=== PATIENT | female | born 1955 | race Caucasian/White ===

== ENCOUNTER 2018-05-27 06:48 | Day surgery (SDC) | payer BC ==
--- NOTE | 2018-05-20 17:25 | HP ---
CC: Dr. Tia Hutchinson * ADMISSION HISTORY AND PHYSICAL: DATE OF ADMISSION: 05/27/18 ATTENDING SURGEON: Dr. Martina Bautista.* (DICTATED BY KEVIN MITTAL) CHIEF COMPLAINT: Atypia, left breast. HISTORY OF PRESENT ILLNESS: This is a 62-year-old female who underwent routine screening mammography on 04/20/18. This was preceded by breast exam by her primary care provider, Dr. Hutchinson. Neither the patient herself nor Dr. Hutchinson had felt anything of concern in either breast. The mammogram from that day showed some architectural distortion in the left breast upper inner quadrant. An ultrasound on the same date did not show any abnormalities. A subsequent stereotactic biopsy on 05/04/18, showed atypical glandular parenchyma with differential including invasive ductal carcinoma, tough recommendation was for further excision. The patient was seen in the office by Dr. Bautista on . Exam at that time showed symmetric breasts with extensive ecchymosis of the left breast in the superior aspect. There was also a scar in the outer right breast with associated skin dimpling (from prior I and D for a breast abscess about 10 years ago). There were no nipple changes. There were no discreet masses of the right breast. In the left breast, there was a 2.5 x 2 cm subcutaneous smooth, regular mass consistent with hematoma in the superior aspect. There were no other discrete masses palpable. Dr. Bautista has discussed with the patient, the indications for surgery, the risks, benefits, and alternatives and she would like to proceed as scheduled with wide excision of left breast atypia (following needle localization). A biopsy clip was placed at that time. PAST MEDICAL HISTORY: Ankylosing spondylitis, arthritis, hypertension, anxiety and depression, peripheral neuropathy. The patient has had a past history of asthma generally during the time when she smoked and with no problems in the recent years or need for bronchodilator therapy. PAST SURGICAL HISTORY: Previous surgeries include lumbar laminectomy, I and D of right breast abscess, vaginal hysterectomy for dysfunctional uterine bleeding , excision of the hemangioma of the back and appendectomy remotely. No reported surgical or anesthesia complications. CURRENT MEDICATIONS: 1. Celebrex 200 mg b.i.d. 2. Amlodipine 5 mg daily. 3. Fentanyl patch 50 mcg changed every other day. 4. Singulair 10 mg daily. 5. Hydrocodone-acetaminophen 10-325 one to two tablets p.r.n. for pain ( typically uses 6 tablets per day). 6. Gabapentin 300 mg 1 to 2 tablets q.h.s. p.r.n. 7. Alpha lipoic acid 60 mg once daily. 8. Viibryd 20 mg once daily. 9. Clonazepam 1 mg one half tablet b.i.d. p.r.n. (does not use daily). 10. Vitamin B12 1000 mcg subcutaneously every 3 weeks. 11. Cosentyx 150 mg per mL subcutaneous injection every 4 weeks. 12. Vitamin D 2000 IU once daily. 13. Diclofenac topical 1% p.r.n. DRUG ALLERGIES: LEVAQUIN (Kedar-Eleazar syndrome); PENICILLIN (hives), (the patient has tolerated cephalosporins); HUMIRA (rash) and ZYRTEC (tachycardia). FAMILY HISTORY: Negative for anesthesia problems, bleeding or clotting disorders. SOCIAL HISTORY: The patient lives alone. 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 She quit smoking in 1984 and has approximately a 10-pack year history. She drinks on an average 2 drinks every week or two. She denies any other recreational drug use. REVIEW OF SYSTEMS: General: No recent constitutional symptoms or acute illnesses. Weight has been stable. HEENT: No problems reported. Cardiovascular: No chest pain, palpitations, or history of heart murmur. She is treated for hypertension. Respiratory: No recent problems related to asthma. No cough or shortness of breath. GI: No problems reported. Colonoscopy done approximately 7 years ago, with recommended 10-year follow up and no interval symptoms are concern. : No problems reported. 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 Breasts: As above per HPI. Endocrine: No diabetes or thyroid dysfunction. Neuropsych: History of anxiety and depression as well as peripheral neuropathy and chronic pain. Musculoskeletal: As above. No additions. PHYSICAL EXAMINATION GENERAL: Well-nourished, well-developed female, in no acute distress. VITAL SIGNS: Height 5 feet 5 inches, weight 170, blood pressure 120/82, pulse 76 , respirations 16. SKIN: Warm and dry. No suspicious rashes or lesions noted. HEENT: Pupils equal, round and reactive. EOMs intact. No conjunctival pallor. Oropharynx: Teeth in good repair, no intraoral lesions. NECK: No lymphadenopathy, thyromegaly or masses. LUNGS: Clear to auscultation. No wheezes. HEART: Regular rate and rhythm. No murmur appreciated. BREASTS: Per Dr. Bautista's exam, not repeated today. ABDOMEN: Soft, nontender to palpation. No palpable masses or organomegaly. GENITALIA: Not examined. RECTAL: Not examined. BACK: No spinous process or CVA tenderness. EXTREMITIES: No edema. NEUROLOGICAL: Grossly intact. IMPRESSION: Atypia, left breast. PLAN: Wide excision, atypia, left breast (after needle localization). KEVIN MITTAL [id number]/[facility] #: [id number] MTDTasha
[~2018-05-27 06:48] MED LIST: Buffered Lidocaine 1% SYRIN* 1 ML/SYRINGE INTRADERM ONE; Famotidine IV* 10 MG/ML 2 ML (20 mg) IV ONE; Lactated Ringers 1000 ML Bag* 1,000 ML IV SCH
[2018-05-27] MEDS ORDERED: Lidocaine 2.5%/Prilocain 2.5%* 5 GM TUBE ONE (07:16)
[2018-05-27] MEDS ORDERED: Famotidine IV* 10 MG/ML 2 ML (20 mg) ONE (07:38)
[2018-05-27] MEDS ORDERED: ceFAZolin 2 GM PREMIX in ORs 2 GM/50 ML BAG IVPB ONE (07:52)
[2018-05-27] MEDS ORDERED: Ondansetron INJ* 2 MG/ML VIAL ONE (10:27)
[2018-05-27] MEDS ORDERED: KETAMINE HCL* 50 MG/ML 10 ML VIAL ONE (10:27)
[2018-05-27] MEDS ORDERED: fentaNYL* 50 MCG/ML 2 ML VIAL (100 MCG VIAL) ONE (10:27)
[2018-05-27] MEDS ORDERED: Dexamethasone IV* 4 MG/ML 1 ML (4 MG) ONE (10:27)
[2018-05-27] MEDS ORDERED: Lidocaine 2% PF * 5 ML VIAL ONE (10:27)
[2018-05-27] MEDS ORDERED: Midazolam* 1 MG/ML 10 ML VIAL (10 MG) ONE (10:27)
[2018-05-27] MEDS ORDERED: Propofol* 10 MG/ML 20 ML BTL ONE ×2 (10:27→12:00)
[2018-05-27] MEDS ORDERED: Ketorolac INJ* 30 MG/ML 1 ML VIAL ONE (10:27)
[2018-05-27] MEDS ORDERED: Lidocaine 1% INJ* 10 MG/ML 30 ML SDV ONE (11:07)
[2018-05-27] MEDS ORDERED: Bupivacaine 0.5% W/EPI SDV* 30 ML VIAL ONE (11:07)
[2018-05-27] MEDS ORDERED: oxyCODONE/Acetamin 5/325 MG* TAB PO PRN (12:06)
[2018-05-27] MEDS ORDERED: Naloxone* 0.4 MG/ML 1 ML VIAL IV PRN (12:06)
[2018-05-27] MEDS ORDERED: fentaNYL* 50 MCG/ML 2 ML VIAL (100 MCG VIAL) IV PRN (12:06)
--- NOTE | 2018-05-27 12:44 | BRIEFOPN ---
Brief Operative Note - Surgery Procedures: Procedures COLONOSCOPY (11/07/14) D & C NEC (01/06/08) ENDOMETRIAL ABLATION (01/06/08) HEMORRHOIDECTOMY (02/10/13) INJECTION INTO JOINT (05/23/13) SPINAL CANAL INJECT NEC (11/30/13) 05/27/18 Op Note (dictated) Pre-op dx: left breast mammographic abnormality Post-op dx: same Procedure: Needle localization excision left breast mammographic abnormality Surgeon: Michele Asst: none Anesth: local-MAC EBL: 5 cc SCDs on during surgery Abx: given pre-op complications: none Pt. tolerated procedure well and was transferred to in a stable condition. CLFoster
[2018-05-27] MEDS ORDERED: HYDROcodone/ACETAMIN 5-325 MG* 1 TAB PO PRN ×2 (12:45)
[2018-05-27 13:16] VITALS: BP 141/94
--- NOTE | 2018-05-27 20:44 | OP ---
CC: Dr. Tia Hutchinson * DATE OF OPERATION: 05/27/18 - SDS DATE OF : 51 SURGEON: Martina Bautista MD. 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 PRE-OP DIAGNOSIS: Left breast mammographic abnormality POST-OP DIAGNOSIS: Left breast mammographic abnormality OPERATIVE PROCEDURE: Needle localization and excision of left breast mammographic abnormality. INDICATIONS: The patient is a 62-year-old woman who had recently identified mammographic abnormality that showed some atypia when it was biopsied. This prompted the plan for a wider excision. DESCRIPTION OF PROCEDURE: On the morning of surgery, she underwent needle localization without difficulty and was then brought to the operating room. She was placed on the OR table in the supine position and given IV sedation. The left breast was prepped and draped in usual sterile fashion taking care not to dislodge the localizing wire. After infiltrating with local anesthetic, an elliptical curvilinear incision was made encompassing the wire and subcutaneous tissue was then divided with electrocautery to excise the mass of tissue from around the wire. This was removed from the breast and marked in the usual fashion and handed off as a specimen. Hemostasis was then assured with electro- cautery and once this was adequate, clips were placed in the cavity to lety its confines and additional local was instilled into the wound. Closure was then accomplished with 3-0 Vicryl in the subcutaneous layer and the skin was closed with 4-0 Prolene in a subcuticular fashion. Steri-Strips and a dry sterile dressing were applied. All sponge and instrument counts were correct. The patient tolerated the procedure well and was transferred to recovery in a stable condition. [id number]/[facility] #: [id number] [facility]
== END 2018-05-27 13:20 | disposition home or self-care (01) ==
LOC: OR 06:48
PROVIDERS: ATTEND Surgery
DX: C50.912 Malignant neoplasm of unspecified site of left female breast (principal); Z87.891 Personal history of nicotine dependence; I10 Essential (primary) hypertension; F41.8 Other specified anxiety disorders; M45.9 Ankylosing spondylitis of unspecified sites in spine; M19.90 Unspecified osteoarthritis, unspecified site; Z88.0 Allergy status to penicillin; Z88.8 Allergy status to other drugs, medicaments and biological substances; G62.9 Polyneuropathy, unspecified
CPT/HCPCS: 88307; 88360; A9270-GY; J0690; J1100; J1885; J2250; J2405; J2704; J3010

== ENCOUNTER 2018-06-03 17:55 | Emergency (ER) | payer BC, OTHER ==
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
[2018-06-03 18:38] LABS: ABS Basophils 0.1 10^3/ul (0-0.2); ABS Eosinophils 0.3 10^3/ul (0-0.6); ABS Lymphocytes 1.6 10^3/ul (1.0-4.8); ABS Monocytes 0.6 10^3/ul (0-0.8); ABS Neutrophils 4.4 10^3/ul (1.5-7.7); ABS Nucleated RBC 0 10^3/ul; Hematocrit 38 % (35-47); Hemoglobin 12.5 g/dl (12.0-16.0); Lymphocyte % 22.7 %; Mean Corpuscular HGB Conc 33 g/dl (31-36); Mean Corpuscular Hemoglobin 30 pg (27-31); Mean Corpuscular Volume 92 fL (80-97); Mean Platelet Volume 8.5 fL (7.4-10.4); Nucleated Red Blood Cells % 0.1; Platelet Count 264 10^3/ul (150-450); Red Blood Count 4.17 10^6/ul (4.00-5.40); Red Cell Distribution Width 14 % (10.5-15); White Blood Count 6.9 10^3/ul (3.5-10.8)
[2018-06-03 19:02] LABS: Albumin 4.1 g/dL (3.2-5.2); Albumin/Globulin Ratio 1.4 (1-3); BUN/Creatinine Ratio 30.2 (8-20); Calcium 9.5 mg/dL (8.6-10.3); EGFR African American 70.8 (>60); EGFR Non-African American 58.5 (>60); Globulin 2.9 g/dL (2-4); Potassium 4.6 mmol/L (3.5-5.0); Total Bilirubin 0.2 mg/dL (0.2-1.0)
[2018-06-03 19:03] LABS: Troponin I 0.01 ng/mL (<0.04)
[2018-06-03] MEDS ORDERED: Iodixanol* (CONTRAST) 320 MG/ML 100 ML SDV IV ONE (19:10)
--- OUTSIDE RECORDS SUMMARY | 2018-06-03 19:20 | XMS REPORT | Continuity of Care Document ---
:1955 External Reference #:[id number] Author Name VaishnaviGilma aguilar Care Team Providers Name Role Phone Tia Hutchinson MD Primary Care Physician Unavailable Payers Type Date Identification Numbers Payment Provider Subscriber Effective: Policy Number: [id number] BS Xavier Perkins 2013 PayID: [id number] Andrés [id number] MELVIN Crawford [id number] Effective: 2012 Policy Number: [id number] BS Xvaier Duncann Expires: 2013 PayID: [id number] Andrés [id number] MELVIN Crawford [id number] Effective: 2012 Policy Number: [id number] BS Xavier Perkins Expires: 2012 PayID: [id number] Andrés [id number] MELVIN Crawford [id number] Advance Directives Description No Information Available Problems Date Description Provider Status Onset: 01/08/2012 Cough Luis Wooten M.D. Active Onset: 01/08/2012 Ankylosing spondylitis Luis Wooten M.D. 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 Active Encounter Onset: 01/08/2012 Eruption Luis Wooten M.D. Active Onset: 04/27/2014 Taking medication JANETT Coates Active Onset: 05/16/2015 Infection of external ear Hesham Graham M.D. Active Onset: 11/15/2014 Neuralgia Luis Wooten M.D. 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 Tobacco Use Start: Unknown End: Former Cigarette Smoker Unknown Tobacco Use Start: Unknown Never Smoked Cigars Tobacco Use Start: Unknown Never Smoked A Pipe Smoking Status Reviewed: 06/01/18 Never Smoked A Pipe Smokeless Tobacco Never Used Smokeless Tobacco ETOH Use Denies alcohol use Tobacco Use Start: Unknown End: Patient is a former smoker Unknown Exercise Type/Frequency Exercises regularly Allergies, Adverse Reactions, Alerts Date Description Reaction Status Severity Comments 07/23/2010 Penicillin Active hives 07/23/2010 Zyrtec D Active tachycardia 11/14/2010 Methotrexate nausea and increased peripheral Active arthritis 11/14/2010 Enbrel skin reaction Active 04/01/2012 Levofloxacin severe rash Active 05/11/2018 Humira Active rash 07/23/2010 NKDA Inactive Medications Medication Date Status Form Strength Qnty SIG Indications Ordering Provider Epipen 2-Osmar Active Solution 0.3mg/0.3M 1units use as 995.3 Zsofia 015 Auto-Injec L directed Mariano, t as needed. CONCRETE PRECAST MOULDER F/U with ER after use. Celebrex Active Capsules 200mg 30caps 2 po qday Luis Wooten M.D. Singulair Active Tablets 10mg 90tabs 1 po qd Unknown 000 Fentanyl Active Patches 50mg 10unit one every Unknown 000 72HR s other day Hydrocodone/A Active Tablets 7.5-325mg 100tab 1 po qid Unknown cetaminophen 000 s prn Diazepam Active Tablets 2mg 1 by mouth Unknown 000 every day as needed Cosentyx Active Soln 150mg/ml as Unknown 000 Prefill directed Syringe Amlodipine Active Tablets 5mg Take 1 Unknown Besylate 000 Tablet By Mouth Every Day Hydrocodone-A Active Tablets 10-325mg Take 1 To Unknown cetaminophen 000 2 Tablets By Mouth 4 Times A Day as Needed For Pain Vitamin B12 Active Tablets ER 1000mcg 1 by mouth Unknown 000 every 3 weeks Diclofenac Active Gel 1% Apply To Unknown Sodium 000 Painful Areas as Needed Vitamin D Active Capsules 2000Unit 1 by mouth Unknown High Potency 000 every day Mometasone Hx Solution 0.1% 60ml instill 4 H62.43 Hesham Furoate 016 drops in [place]rominger each ear , M.D. two times per day for one week and then two times per week. Prednisone Hx Tablets 5mg 30tabs 1 tab by Mick Balderrama mouth Herminia, daily M.D. Prednisone Hx Tablets 5mg 30tabs 1 tab by Johana Balderrama - mouth NATHAN Haley daily 015 Gabapentin Hx Capsules 300mg 270cap 1 tab by Johana Balderrama s mouth NATHAN Halye three times a day Prednisone Hx Tablets 5mg 70tabs one by 357.9 Luis 015 - mouth x5 Je MGrahamDGraham days 015 Benadryl Hx Capsules 25mg 30caps take 2 Zsofia Allergy 015 - tabs q6h Mariano, prn CONCRETE PRECAST MOULDER 015 allergic reaction Simponi Hx Soln 50mg/0.5ML 1units Inject 50 720.0 Zsofia 014 - Prefill mg under Mariano, Syringe the skin CONCRETE PRECAST MOULDER 015 monthly. V58.69 Cefprozil 04/01/2012 - Hx Tablets 500mg 10tabs 1 qd 786.2 Luis 09/16/2012 Modesta Wooten Prednisone 01/08/2012 - Hx Tablets 10mg 20tabs 4 tabs po days Luis 04/01/2012 1-2; 3 tabs po Endo, on days 3-4, 2 M.D. tabs po on days 5-6, 1 tab po days 7-8 Levaquin 12/28/2011 - Hx Tablets 250mg 20tabs 1 bid 462 Luis 01/08/2012 Je MGrahamDGraham Levaquin 12/25/2011 - Hx Solution 250mg/5 10units 1 qd x 10 days 462 Luis 12/28/2011 0ML Modesta Wooten Methotrexate 09/19/2010 - Hx Tablets 2.5mg 36tabs 3 tabs 1x per Luis 11/13/2010 week Modesta Wooten Acyclovir 09/09/2010 - Hx Tablets 400mg 30tabs 1 po tid [place] 09/16/2012 Modesta Wooten Levaquin 08/19/2010 - Hx Tablets 250mg 10tabs 1 qd Luis 09/09/2010 Modesta Wooten Simponi 08/13/2010 - Hx Solution 50mg/0. 12units sc q month Zsofia 04/03/2014 5ML Mariano, CONCRETE PRECAST MOULDER Prednisone 08/06/2010 - Hx Tablets 5mg 35tabs 2 po qd and Luis 09/18/2011 reduce as nilda Wooten M.D. Plaquenil 07/23/2010 - Hx Tablets 200mg 60tabs 2 po qd [place] 12/30/2012 Modesta Wooten Humira 07/23/2010 - Hx Kit 40mg/0. 3units every other Luis 09/19/2010 8ML week Modesta Wooten Advair Diskus - Hx Aerosol 100-50m 60units 1 inhalation Unknown 04/07/2013 cg/Dose twice daily Nasonex - Hx Suspension 50mcg/A 1units 2 sprays to Unknown 04/07/2013 ct each nostril twice daily prn Clonazepam - Hx Tablets 0.5mg 60tabs 1 po bid prn Unknown 05/03/2014 Estradiol Hx Tablets 1mg 30tabs po qam Unknown Lisinopril - Hx Tablets 5mg 90tabs 1 po qd Unknown 09/29/2013 Lisinopril Hx Tablets 20mg 1 by mouth Unknown every day Cimzia Starter Hx Kit 6X 200 inject 400mg Unknown Kit mg/ML subcutaneously week 0, 2 and 4, then 200 mg every [address] Part 60mg 1 by mouth Unknown every day Anti-Tumor Hx Sarai Hutchinson MD Factor Immunizations Description No Information Available Vital Signs Date Vital Result Comment 06/01/2018 11:45am Heart Rate 78 /min BP Systolic Sitting 128 mmHg BP Diastolic Sitting 88 mmHg Respiratory Rate 18 /min Body Temperature 97.6 F 05/20/2018 10:24am Height 65 inches 5'5" Weight 170.00 lb Heart Rate 76 /min BP Systolic 120 mmHg BP Diastolic 82 mmHg Respiratory Rate 16 /min Body Temperature 98.3 F BMI (Body Mass Index) 28.3 kg/m2 05/11/2018 10:20am Height 65 inches 5'5" Weight 170.00 lb Heart Rate 72 /min BP Systolic Sitting 138 mmHg BP Diastolic Sitting 82 mmHg Respiratory Rate 18 /min Body Temperature 97.6 F BMI (Body Mass Index) 28.3 kg/m2 05/16/2015 11:01am Height 63 inches 5'3" Weight 180.00 lb Heart Rate 80 /min BP Systolic Sitting 18 mmHg BP Diastolic Sitting 78 mmHg BMI (Body Mass Index) 31.9 kg/m2 11/15/2014 11:00am Height 63 inches 5'3" Weight 171.00 lb Heart Rate 94 /min BP Systolic Sitting 110 mmHg BP Diastolic Sitting 80 mmHg Pain Level 2 BMI (Body Mass Index) 30.3 kg/m2 11/14/2014 10:16am Height 63 inches 5'3" Weight 165.00 lb Heart Rate 68 /min BP Systolic Sitting 110 mmHg BP Diastolic Sitting 86 mmHg Respiratory Rate 14 /min BMI (Body Mass Index) 29.2 kg/m2 10/31/2014 1:38pm Height 63 inches 5'3" Heart Rate 84 /min BP Systolic Sitting 120 mmHg BP Diastolic Sitting 78 mmHg Respiratory Rate 16 /min 10/02/2014 12:48pm Height 63 inches 5'3" Weight 168.00 lb Heart Rate 72 /min BP Systolic Sitting 130 mmHg BP Diastolic Sitting 72 mmHg Respiratory Rate 16 /min BMI (Body Mass Index) 29.8 kg/m2 09/10/2014 10:08am Height 63 inches 5'3" Weight 166.00 lb Heart Rate 76 /min BP Systolic Sitting 140 mmHg BP Diastolic Sitting 100 mmHg Pain Level 1 BMI (Body Mass Index) 29.4 kg/m2 06/29/2014 10:40am Height 63 inches 5'3" Weight 168.50 lb Heart Rate 66 /min BP Systolic Sitting 150 mmHg BP Diastolic Sitting 90 mmHg Pain Level 1 BMI (Body Mass Index) 29.8 kg/m2 04/27/2014 10:15am Height 63 inches 5'3" Weight 169.00 lb Heart Rate 80 /min BP Systolic Sitting 110 mmHg BP Diastolic Sitting 78 mmHg Pain Level 1 BMI (Body Mass Index) 29.9 kg/m2 09/29/2013 3:30pm Height 63 inches 5'3" Weight 168.00 lb Heart Rate 84 /min BP Systolic Sitting 120 mmHg BP Diastolic Sitting 80 mmHg Pain Level 3 BMI (Body Mass Index) 29.8 kg/m2 07/05/2013 2:38pm Height 63 inches 5'3" Weight 170.00 lb Heart Rate 76 /min BP Systolic Sitting 144 mmHg BP Diastolic Sitting 90 mmHg BMI (Body Mass Index) 30.1 kg/m2 04/07/2013 3:49pm Height 63 inches 5'3" Weight 167.00 lb Heart Rate 84 /min BP Systolic Sitting 124 mmHg BP Diastolic Sitting 84 mmHg BMI (Body Mass Index) 29.6 kg/m2 12/30/2012 3:33pm Weight 169.00 lb Heart Rate 82 /min BP Systolic Sitting 124 mmHg BP Diastolic Sitting 80 mmHg 09/16/2012 2:42pm Heart Rate 82 /min BP Systolic Sitting 124 mmHg BP Diastolic Sitting 90 mmHg 04/01/2012 3:18pm Height 63 inches 5'3" Weight 170.00 lb Heart Rate 80 /min BP Systolic Sitting 128 mmHg BP Diastolic Sitting 74 mmHg Body Temperature 97.9 F BMI (Body Mass Index) 30.1 kg/m2 01/08/2012 1:55pm Height 63 inches 5'3" Heart Rate 84 /min BP Systolic Sitting 131 mmHg BP Diastolic Sitting 76 mmHg Body Temperature 97.7 F 12/25/2011 3:13pm Height 63 inches 5'3" Weight 175.00 lb Heart Rate 80 /min BP Systolic Sitting 130 mmHg BP Diastolic Sitting 81 mmHg Body Temperature 98.6 F BMI (Body Mass Index) 31.0 kg/m2 09/18/2011 3:01pm Height 63 inches 5'3" Weight 176.00 lb Heart Rate 74 /min BP Systolic Sitting 124 mmHg BP Diastolic Sitting 86 mmHg BMI (Body Mass Index) 31.2 kg/m2 06/12/2011 2:28pm Height 63 inches 5'3" Weight 178.00 lb Heart Rate 82 /min BP Systolic Sitting 128 mmHg BP Diastolic Sitting 78 mmHg BMI (Body Mass Index) 31.5 kg/m2 01/23/2011 1:12pm Weight 184.00 lb BP Systolic 120 mmHg BP Diastolic 80 mmHg 11/14/2010 2:36pm Weight 183.00 lb Heart Rate 80 /min BP Systolic 120 mmHg BP Diastolic 74 mmHg 09/19/2010 1:07pm Weight 184.00 lb Heart Rate 80 /min BP Systolic 138 mmHg BP Diastolic 74 mmHg 08/06/2010 4:17pm Weight 188.00 lb Heart Rate 78 /min BP Systolic 145 mmHg BP Diastolic 85 mmHg 07/23/2010 3:34pm Weight 183.00 lb Heart Rate 100 /min BP Systolic 120 mmHg BP Diastolic 80 mmHg BMI (Body Mass Index) 31.4 kg/m2 Results Test Date Facility Test Result H/L Range Note Laboratory test 05/27/2018 [facility] Surgical SEE RESULT [address] [place] [address] [phone] CBC Auto Diff 12/28/2014 [facility] White Blood 5.8 10^3/uL N 4.8-10.[address] [place] [address] [phone] Red Blood Count 3.75 10^6/uL Low 4.0-5.4 Hemoglobin 12.1 g/dL N 12.0-16.0 Hematocrit 36 % N 35-47 Mean Corpuscular Volume 97 fL N 80-97 Mean Corpuscular Hemoglobin 32 pg High 27-31 Mean Corpuscular HGB Conc 33 g/dL N 31-36 Red Cell Distribution Width 13 % N 10.5-15 Platelet Count 249 10^3/uL N 150-450 Mean Platelet Volume 8 um3 N 7.4-10.4 Abs Neutrophils 2.6 10^3/uL N 1.5-7.7 Abs Lymphocytes 2.0 10^3/uL N 1.0-4.8 Abs Monocytes 0.7 10^3/uL N 0-0.8 Abs Eosinophils 0.4 10^3/uL N 0-0.6 Abs Basophils 0.1 10^3/uL N 0-0.2 Abs Nucleated RBC 0 10^3/uL N Granulocyte % 44.9 % N 38-83 Lymphocyte % 35.5 % N 25-47 Monocyte % 11.5 % High 1-9 Eosinophil % 6.9 % High 0-6 Basophil % 1.2 % N 0-2 Nucleated Red Blood Cells % 0.1 N Comp Metabolic Panel 12/28/2014 [facility] Sodium 135 mmol/L N 133-[address] [place] [address] [phone] Potassium 4.7 mmol/L N 3.5-5.0 Chloride 100 mmol/L Low 101-111 Co2 Carbon Dioxide 28 mmol/L N 22-32 Anion Gap 7 mmol/L N 2-11 Glucose 79 mg/dL N 70-100 Blood Urea Nitrogen 24 mg/dL N 6-24 Creatinine 0.93 mg/dL N 0.51-0.95 BUN/Creatinine Ratio 25.8 High 8-20 Calcium 9.3 mg/dL N 8.6-10.3 Total Protein 6.3 g/dL Low 6.4-8.9 Albumin 3.9 g/dL N 3.2-5.2 Globulin 2.4 g/dL N 2-4 Albumin/Globulin Ratio 1.6 N 1-3 Total Bilirubin 0.50 mg/dL N 0.2-1.0 Alkaline Phosphatase 46 U/L N 34-104 Alt 10 U/L N 7-52 Ast 17 U/L N 13-39 Egfr Non- 61.3 N >60 Egfr 78.8 N >60 2 Urinalysis Profile 12/28/2014 [facility] Urine Color Yellow N [address] [place] [address] [phone] Urine Appearance Clear N Urine Specific [place] 1.018 N 1.010-1.030 Urine pH 5.0 N 5-9 Urine Urobilinogen Negative N Negative Urine Ketones Negative N Negative Urine Protein Negative N Negative Urine Leukocytes Negative N Negative Urine Blood Negative N Negative Urine Nitrite Negative N Negative Urine Bilirubin Negative N Negative Urine Glucose Negative N Negative Laboratory test 12/28/2014 [facility] Creatinine Random 107.09 mg/dL N finding [address] [place] [address] [phone] Total Protein Random Urine 7 mg/dL N Sm ([place]) IgG Antibody <0.2 U N 3 U1 SHIPPING CHECKER/SNRNP Igg Autoabs <0.2 U N 4 Ssa/SSB Abs Igg 12/28/2014 [facility] SS-A/Ro Antibody <0.2 U N [address] [place] [address] [phone] SS-B/La Antibody <0.2 U N 6 Laboratory test 12/28/2014 [facility] Complement C1q 18 mg/dL N 12 - [address] [place] [address] [phone] Complement C3 124 mg/dL N 75 - 175 8 Complement C4 29 mg/dL N 14 - 40 9 Cytoplasmic 12/28/2014 [facility] C-Anca Negative N Negative Neutrophilic AB [address] [place], [place] [id number] [phone] P-Anca Negative N Negative 10 Laboratory test 12/28/2014 [facility] Anti Dna Negative N Negative finding [address] ([place] [address] Stranded Dna) [phone] Mellissa (Antinuclear Antibodies) Negative N Negative Laboratory test 11/15/2014 [facility] C Reactive 23.64 mg/L High < 5.[address] [place] [address] [phone] Erythrocyte Sed Rate 10 mm/Hr N 0-30 Cyclic Citrullinated Pep Igg <15.6 U N 12 Rheumatoid Factor <15 IU/mL N <15 13 Comp Metabolic Panel 11/15/2014 [facility] Sodium 135 mmol/L N 133-[address] [place] [address] [phone] Potassium 5.4 mmol/L High 3.5-5.0 Chloride 102 mmol/L N 101-111 Co2 Carbon Dioxide 24 mmol/L N 22-32 Anion Gap 9 mmol/L N 2-11 Glucose 104 mg/dL High 70-100 Blood Urea Nitrogen 28 mg/dL High 6-24 Calcium 9.3 mg/dL N 8.6-10.3 Total Protein 6.7 g/dL N 6.4-8.9 Albumin 4.1 g/dL N 3.2-5.2 Globulin 2.6 g/dL N 2-4 Albumin/Globulin Ratio 1.6 N 1-3 Total Bilirubin 0.40 mg/dL N 0.2-1.0 Alkaline Phosphatase 54 U/L N 34-104 Alt 16 U/L N 7-52 Ast 22 U/L N 13-39 Creatinine 1.34 mg/dL High 0.51-0.95 BUN/Creatinine Ratio 20.9 High 8-20 Egfr Non- 40.2 N >60 Egfr 51.7 N >60 14 CBC Auto 11/15/2014 [facility] White Blood 18.7 10^3/uL High 4.8-10.[address] [place] [address] [phone] Red Blood Count 4.01 10^6/uL N 4.0-5.4 Hemoglobin 12.8 g/dL N 12.0-16.0 Hematocrit 39 % N 35-47 Mean Corpuscular Volume 97 fL N 80-97 Mean Corpuscular Hemoglobin 32 pg High 27-31 Mean Corpuscular HGB Conc 33 g/dL N 31-36 Red Cell Distribution Width 13 % N 10.5-15 Platelet Count 253 10^3/uL N 150-450 Mean Platelet Volume 9 um3 N 7.4-10.4 Abs Neutrophils 17.0 10^3/uL High 1.5-7.7 Abs Lymphocytes 1.0 10^3/uL N 1.0-4.8 Abs Monocytes 0.7 10^3/uL N 0-0.8 Abs Eosinophils 0 10^3/uL N 0-0.6 Abs Basophils 0.1 10^3/uL N 0-0.2 Abs Nucleated RBC 0 10^3/uL N Granulocyte % 90.4 % High 38-83 Lymphocyte % 5.2 % Low 25-47 Monocyte % 3.7 % N 1-9 Eosinophil % 0.2 % N 0-6 Basophil % 0.5 % N 0-2 Nucleated Red Blood Cells % 0 N Creatinine 11/07/2014 [facility] Creatinine 0.74 mg/dL N 0.51- 0.[address] [place] [address] [phone] Egfr Non- 79.8 N >60 Egfr 102.6 N >60 15 Protein Electrophoresis 10/02/2014 Total Protein(Pep) 7.2 g/dL N 6.3 - 7.9 Albumin 3.6 g/dL N 3.4-4.7 Alpha-1 Globulin 0.3 g/dL N 0.1-0.3 Alpha-2 Globulin 1.2 g/dL Abnormal 0.6-1.0 Beta Globulin 1.0 g/dL N 0.7-1.2 Gamma Globulin 1.1 g/dL N 0.6-1.6 Albumin/Globulin Ratio 0.99 N Impression See Comment N 16 Laboratory test finding 10/02/2014 Lyme Disease Serology Negative N Negative 17 Ssa/SSB Abs Igg 10/02/2014 SS-A/Ro Antibody <0.2 U N 18 SS-B/La Antibody <0.2 U N 19 Laboratory test 09/10/2014 [facility] TSH (Thyroid 1.37 ?IU/mL N 0.34-5.[address] Stim Horm) [place] [address] [phone] Free T4 (Free Thyroxine) 0.72 ng/mL N 0.61-1.12 Vitamin B12 330 pg/mL N 180-914 20 CBC Auto Diff 09/10/2014 [facility] White Blood 6.4 10^3/uL N 4.8-10.[address] [place] [address] [phone] Red Blood Count 4.02 10^6/uL N 4.0-5.4 Hemoglobin 13.0 g/dL N 12.0-16.0 Hematocrit 38 % N 35-47 Mean Corpuscular Volume 95 fL N 80-97 Mean Corpuscular Hemoglobin 32 pg High 27-31 Mean Corpuscular HGB Conc 34 g/dL N 31-36 Red Cell Distribution Width 13 % N 10.5-15 Platelet Count 222 10^3/uL N 150-450 Mean Platelet Volume 9 um3 N 7.4-10.4 Abs Neutrophils 3.4 10^3/uL N 1.5-7.7 Abs Lymphocytes 2.3 10^3/uL N 1.0-4.8 Abs Monocytes 0.5 10^3/uL N 0-0.8 Abs Eosinophils 0.1 10^3/uL N 0-0.6 Abs Basophils 0.1 10^3/uL N 0-0.2 Abs Nucleated RBC 0 10^3/uL N Granulocyte % 53.2 % N 38-83 Lymphocyte % 35.6 % N 25-47 Monocyte % 8.0 % N 1-9 Eosinophil % 2.0 % N 0-6 Basophil % 1.2 % N 0-2 Nucleated Red Blood Cells % 0.1 N Comp Metabolic Panel 09/10/2014 [facility] Sodium 134 mmol/L N 133-[address] [place] [address] [phone] Potassium 4.4 mmol/L N 3.5-5.0 Chloride 100 mmol/L Low 101-111 Co2 Carbon Dioxide 28 mmol/L N 22-32 Anion Gap 6 mmol/L N 2-11 Glucose 92 mg/dL N 70-100 Blood Urea Nitrogen 18 mg/dL N 6-24 Creatinine 0.89 mg/dL N 0.51-0.95 BUN/Creatinine Ratio 20.2 High 8-20 Calcium 9.2 mg/dL N 8.6-10.3 Total Protein 6.5 g/dL N 6.4-8.9 Albumin 4.0 g/dL N 3.2-5.2 Globulin 2.5 g/dL N 2-4 Albumin/Globulin Ratio 1.6 N 1-3 Total Bilirubin 0.60 mg/dL N 0.2-1.0 Alkaline Phosphatase 31 U/L Low 34-104 Alt 17 U/L N 7-52 Ast 17 U/L N 13-39 Egfr Non- 64.5 N >60 Egfr 82.9 N >60 21 Laboratory test 09/10/2014 [facility] Mellissa (Anti-Nuclear Negative N Negative finding [address] AB) [place] [address] [phone] Isabel Screen Negative N Negative 22 Cytoplasmic 09/10/2014 [facility] C-Anca Negative N Negative Neutrophilic AB [address] [place] [address] [phone] P-Anca Negative N Negative 23 Laboratory test 09/10/2014 [facility] Erythrocyte Sed 6 mm/Hr N 0-[address] [place] [address] [phone] C Reactive Protein 1.07 mg/L N < 5.00 24 Laboratory test finding 07/04/2014 Mellissa (Anti-Nuclear AB) Negative N Negative Screen Histone Antibodies <0.5 U N 25 Urinalysis Profile 07/04/2014 Urine Color Yellow N Urine Appearance Cloudy N Urine Specific [place] 1.025 N 1.010-1.030 Urine pH 5.0 N 5-9 Urine Urobilinogen Negative N Negative Urine Ketones Negative N Negative Urine Protein Negative N Negative Urine Leukocytes Negative N Negative Urine Blood Negative N Negative Urine Nitrite Negative N Negative Urine Bilirubin Negative N Negative Urine Glucose Negative N Negative CBC Auto Diff 07/04/2014 White Blood Count 8.1 10^3/uL N 4.8-10.8 Red Blood Count 4.04 10^6/uL N 4.0-5.4 Hemoglobin 12.9 g/dL N 12.0-16.0 Hematocrit 39 % N 35-47 Mean Corpuscular Volume 96 fL N 80-97 Mean Corpuscular Hemoglobin 32 pg High 27-31 Mean Corpuscular HGB Conc 33 g/dL N 31-36 Red Cell Distribution Width 14 % N 10.5-15 Platelet Count 221 10^3/uL N 150-450 Mean Platelet Volume 9 um3 N 7.4-10.4 Abs Neutrophils 5.1 10^3/uL N 1.5-7.7 Abs Lymphocytes 2.1 10^3/uL N 1.0-4.8 Abs Monocytes 0.6 10^3/uL N 0-0.8 Abs Eosinophils 0.2 10^3/uL N 0-0.6 Abs Basophils 0.1 10^3/uL N 0-0.2 Abs Nucleated RBC 0 10^3/uL N Granulocyte % 63.2 % N 38-83 Lymphocyte % 26.0 % N 25-47 Monocyte % 8.0 % N 1-9 Eosinophil % 2.2 % N 0-6 Basophil % 0.6 % N 0-2 Nucleated Red Blood Cells % 0 N Comp Metabolic Panel 07/04/2014 Sodium 136 mmol/L N 133-145 Potassium 4.1 mmol/L N 3.5-5.0 Chloride 101 mmol/L N 101-111 Co2 Carbon Dioxide 29 mmol/L N 22-32 Anion Gap 6 mmol/L N 2-11 Glucose 88 mg/dL N 70-100 Blood Urea Nitrogen 26 mg/dL High 6-24 Creatinine 1.02 mg/dL High 0.51-0.95 BUN/Creatinine Ratio 25.5 High 8-20 Calcium 9.3 mg/dL N 8.6-10.3 Total Protein 6.3 g/dL Low 6.4-8.9 Albumin 4.1 g/dL N 3.2-5.2 Globulin 2.2 g/dL N 2-4 Albumin/Globulin Ratio 1.9 N 1-3 Total Bilirubin 0.60 mg/dL N 0.2-1.0 Alkaline Phosphatase 36 U/L N 34-104 Alt 13 U/L N 7-52 Ast 15 U/L N 13-39 Egfr Non- 55.3 N >60 Egfr 71.1 N >60 26 Laboratory test finding 07/04/2014 CRP High Sensitivity 1.21 mg/L N 27 Erythrocyte Sed Rate 4 mm/Hr N 0-30 CBC Auto Diff 04/06/2014 [facility] White Blood 8.4 10^3/uL N 4.8-10.[address] [place] [address] [phone] Red Blood Count 4.07 10^6/uL N 4.0-5.4 Hemoglobin 12.7 g/dL N 12.0-16.0 Hematocrit 38 % N 35-47 Mean Corpuscular Volume 94 fL N 80-97 Mean Corpuscular Hemoglobin 31 pg N 27-31 Mean Corpuscular HGB Conc 33 g/dL N 31-36 Red Cell Distribution Width 13 % N 10.5-15 Platelet Count 355 10^3/uL N 150-450 Mean Platelet Volume 9 um3 N 7.4-10.4 Abs Neutrophils 5.1 10^3/uL N 1.5-7.7 Abs Lymphocytes 2.2 10^3/uL N 1.0-4.8 Abs Monocytes 0.8 10^3/uL N 0-0.8 Abs Eosinophils 0.2 10^3/uL N 0-0.6 Abs Basophils 0.1 10^3/uL N 0-0.2 Abs Nucleated RBC 0 10^3/uL N Granulocyte % 61.1 % N 38-83 Lymphocyte % 25.9 % N 25-47 Monocyte % 9.5 % High 1-9 Eosinophil % 2.5 % N 0-6 Basophil % 1.0 % N 0-2 Nucleated Red Blood Cells % 0 N Comp Metabolic Panel 04/06/2014 [facility] Sodium 137 mmol/L N 133-[address] [place] [address] [phone] Potassium 4.7 mmol/L N 3.5-5.0 Chloride 100 mmol/L Low 101-111 Co2 Carbon Dioxide 30 mmol/L N 22-32 Anion Gap 7 mmol/L N 2-11 Glucose 92 mg/dL N 70-100 Blood Urea Nitrogen 30 mg/dL High 6-24 Creatinine 1.01 mg/dL High 0.51-0.95 BUN/Creatinine Ratio 29.7 High 8-20 Calcium 9.8 mg/dL N 8.6-10.3 Total Protein 6.7 g/dL N 6.4-8.9 Albumin 4.2 g/dL N 3.2-5.2 Globulin 2.5 g/dL N 2-4 Albumin/Globulin Ratio 1.7 N 1-3 Total Bilirubin 0.30 mg/dL N 0.2-1.0 Alkaline Phosphatase 63 U/L N 34-104 Alt 23 U/L N 7-52 Ast 18 U/L N 13-39 Egfr Non- 55.9 N >60 Egfr 71.9 N >60 28 Laboratory test 04/06/2014 [facility] C Reactive 11.13 mg/L High < 5.00 [address] [place] [address] [phone] Erythrocyte Sed Rate 9 mm/Hr N 0-30 CBC Auto Diff 09/28/2013 White Blood Count 5.9 10^3/uL N 4.8-10.8 Red Blood Count 3.92 10^6/uL Low 4.0-5.4 Hemoglobin 12.3 g/dL N 12.0-16.0 Hematocrit 37 % N 35-47 Mean Corpuscular Volume 95 fL N 80-97 Mean Corpuscular Hemoglobin 32 pg High 27-31 Mean Corpuscular HGB Conc 33 g/dL N 31-36 Red Cell Distribution Width 13 % N 10.5-15 Platelet Count 237 10^3/uL N 150-450 Mean Platelet Volume 9 um3 N 7.4-10.4 Abs Neutrophils 2.3 10^3/uL N 1.5-7.7 Abs Lymphocytes 2.7 10^3/uL N 1.0-4.8 Abs Monocytes 0.6 10^3/uL N 0-0.8 Abs Eosinophils 0.2 10^3/uL N 0-0.6 Abs Basophils 0.1 10^3/uL N 0-0.2 Abs Nucleated RBC 0.01 10^3/uL N Laboratory test finding 09/28/2013 Erythrocyte Sed Rate 3 mm/Hr N 0-30 C Reactive Protein 1.07 mg/L N < 5.00 30 Comp Metabolic Panel 09/28/2013 Sodium 136 mmol/L N 133-145 Potassium 4.5 mmol/L N 3.7-5.6 Chloride 103 mmol/L N 101-111 Co2 Carbon Dioxide 28 mmol/L N 22-32 Anion Gap 5 mmol/L N 2-11 Glucose 93 mg/dL N 70-100 Blood Urea Nitrogen 25 mg/dL High 6-24 Creatinine 0.87 mg/dL N 0.51-0.95 BUN/Creatinine Ratio 28.7 High 8-20 Calcium 9.3 mg/dL N 8.6-10.3 Total Protein 6.2 g/dL Low 6.4-8.9 Albumin 3.7 g/dL N 3.2-5.2 Globulin 2.5 g/dL N 2-4 Albumin/Globulin Ratio 1.5 N 1-3 Total Bilirubin 0.40 mg/dL N 0.2-1.0 Alkaline Phosphatase 40 U/L N 34-104 Alt 9 U/L N 7-52 Ast 14 U/L N 13-39 Egfr Non- 66.4 N >60 Egfr 85.4 N >60 31 Manual Differential 09/28/2013 Neutrophil % 41 % N 38-83 Lymphocytes % 49 % High 25-47 Monocytes % 9 % N 0-13 Basophil % 1 % N 0-2 Laboratory test 09/28/2013 Pathologist Review (SEE NOTE) N 32 finding Basic Metabolic 06/29/2013 [facility] Sodium 135 mmol/L 133- [address] [place] [address] [phone] Potassium 4.1 mmol/L 3.7-5.6 Chloride 100 mmol/L Low 101-111 Co2 Carbon Dioxide 28 mmol/L 22-32 Anion Gap 7 mmol/L 2-11 Glucose 86 mg/dL 70-100 Blood Urea Nitrogen 24 mg/dL 6-24 Creatinine 0.72 mg/dL 0.51-0.95 BUN/Creatinine Ratio 33.3 High 8-20 Calcium 9.1 mg/dL 8.6-10.3 Egfr Non- 82.9 >60 Egfr 106.6 >60 33 Laboratory test finding 06/29/2013 [facility] Albumin 4.2 g/dL 3.2-5.[address] [place] [address] [phone] Total Bilirubin 0.70 mg/dL 0.2-1.0 Direct Bilirubin 0.20 mg/dL High 0.03-0.18 Alkaline Phosphatase 40 U/L 34-104 Alt 10 U/L 7-52 Ast 18 U/L 13-39 C Reactive Protein 1.89 mg/L 34 CBC With 06/29/2013 [facility] White Blood 6.4 10^3/uL 4.8- 10.8 Manual Diff [address] [place] [address] [phone] Red Blood Count 4.09 10^6/uL 4.0-5.4 Hemoglobin 12.9 g/dL 12.0-16.0 Hematocrit 38 % 35-47 Mean Corpuscular Volume 94 fL 80-97 Mean Corpuscular Hemoglobin 32 pg High 27-31 Mean Corpuscular HGB Conc 34 g/dL 31-36 Red Cell Distribution Width 14 % 10.5-15 Platelet Count 236 10^3/uL 150-450 Mean Platelet Volume 9 um3 7.4-10.4 Abs Neutrophils 3.3 10^3/uL 1.5-7.7 Abs Lymphocytes 2.2 10^3/uL 1.0-4.8 Abs Monocytes 0.6 10^3/uL 0-0.8 Abs Eosinophils 0.1 10^3/uL 0-0.6 Abs Basophils 0.1 10^3/uL 0-0.2 Abs Nucleated RBC 0.01 10^3/uL Neutrophil % 53 % 38-83 Lymphocytes % 40 % 25-47 Monocytes % 5 % 0-13 Basophil % 1 % 0-2 Reactive Lymph % 1 % 0-6 RBC Morphology Normal Normal Laboratory test 06/29/2013 [facility] Erythrocyte Sed 4 mm/Hr 0-[address] [place] [address] [phone] TSH (Thyroid Stimulating Horm) 1.15 IU/mL 0.34-5.60 CBC W/Manual Diff 03/25/2013 White Blood Count 8.5 10^3/uL 4.8-10.8 Red Blood Count 4.12 10^6/uL 4.0-5.4 Hemoglobin 12.4 g/dL 12.0-16.0 Hematocrit 38 % 35-47 Mean Corpuscular Volume 92 fL 80-97 Mean Corpuscular Hemoglobin 30 pg 27-31 Mean Corpuscular HGB Conc 33 g/dL 31-36 Red Cell Distribution Width 13 % 10.5-15 Platelet Count 243 10^3/uL 150-450 Mean Platelet Volume 10 um3 7.4-10.4 Abs Neutrophils 4.9 10^3/uL 1.5-7.7 Abs Lymphocytes 2.7 10^3/uL 1.0-4.8 Abs Monocytes 0.7 10^3/uL 0-0.8 Abs Eosinophils 0.2 10^3/uL 0-0.6 Abs Basophils 0.1 10^3/uL 0-0.2 Abs Nucleated RBC 0 10^3/uL Neutrophil % 65 % 38-83 Lymphocytes % 24 % Low 25-47 Monocytes % 8 % 0-13 Eosinophils % 1 % 0-6 Basophil % 1 % 0-2 Reactive Lymph % 1 % 0-6 RBC Morphology Normal Normal Laboratory test finding 03/25/2013 C Reactive Protein < 0.5 mg/dL Less than 0.5 BMP Basic Metabolic 03/25/2013 Sodium 137 mmol/L 133-145 Panel Co2 Carbon Dioxide 30.0 mmol/L 22-32 Glucose 84 mg/dL 70-100 Chloride 102 mmol/L 101-111 Potassium 4.4 mmol/L 3.5-5.0 Anion Gap 5.0 mmol/L 2-11 Blood Urea Nitrogen 21 mg/dL 6-24 Creatinine 1.00 mg/dL 0.50-1.40 BUN/Creatinine Ratio 21.0 High 8-20 Calcium 9.3 mg/dL 8.1-9.9 Egfr Non- 56.7 >60 Egfr 73.0 >60 35 Laboratory test finding 03/25/2013 Albumin 4.1 g/dL 3.6-5.4 Total Bilirubin 0.7 mg/dL 0.4-1.5 Direct Bilirubin 0.1 mg/dL 0.1-0.5 Alkaline Phosphatase 37 U/L 30-110 Alt 16 U/L 14-54 Ast 20 U/L 12-42 Erythrocyte Sed Rate 4 mm/Hr 0-30 Basic Metabolic Panel 12/30/2012 [facility] Sodium 134 mmol/L 133-[address] [place] [address] [phone] Potassium 4.2 mmol/L 3.5-5.0 Chloride 103 mmol/L 101-111 Co2 Carbon Dioxide 28.0 mmol/L 22-32 Anion Gap 3.0 mmol/L 2-11 Glucose 88 mg/dL 70-100 Blood Urea Nitrogen 17 mg/dL 6-24 Creatinine 0.90 mg/dL 0.50-1.40 BUN/Creatinine Ratio 18.9 8-20 Calcium 9.1 mg/dL 8.1-9.9 Egfr Non- 64.1 >60 Egfr 82.4 >60 36 Liver Function 12/30/2012 [facility] Total Protein 5.9 g/dL Low 6.2-8.[address] [place] [address] [phone] Albumin 3.6 g/dL 3.6-5.4 Globulin 2.3 g/dL 2-4 Albumin/Globulin Ratio 1.6 1-3 Total Bilirubin 0.7 mg/dL 0.4-1.5 Direct Bilirubin 0.1 mg/dL 0.1-0.5 Indirect Bilirubin 0.6 mg/dL 0.3-1.0 Alkaline Phosphatase 35 U/L 30-110 Alt 15 U/L 14-54 Ast 18 U/L 12-42 Laboratory test 12/30/2012 [facility] C Reactive 0.8 mg/dL High Less than finding [address] Protein 0.5 [place] [address] [phone] CBC With Manual 12/30/2012 [facility] White Blood 4.8 4.8- 10.[address] Count 10^3/[place] [address] [phone] Red Blood Count 4.05 10^6/uL 4.0-5.4 Hemoglobin 12.5 g/dL 12.0-16.0 Hematocrit 38 % 35-47 Mean Corpuscular Volume 94 fL 80-97 Mean Corpuscular Hemoglobin 31 pg 27-31 Mean Corpuscular HGB Conc 33 g/dL 31-36 Red Cell Distribution Width 13 % 10.5-15 Platelet Count 221 10^3/uL 150-450 Mean Platelet Volume 10 um3 7.4-10.4 Abs Neutrophils 2.2 10^3/uL 1.5-7.7 Abs Lymphocytes 1.9 10^3/uL 1.0-4.8 Abs Monocytes 0.5 10^3/uL 0-0.8 Abs Eosinophils 0.2 10^3/uL 0-0.6 Abs Basophils 0.1 10^3/uL 0-0.2 Abs Nucleated RBC 0 10^3/uL Neutrophil % 51 % 38-83 Lymphocytes % 37 % 25-47 Monocytes % 7 % 0-13 Eosinophils % 5 % 0-6 RBC Morphology Normal Normal Laboratory test 12/30/2012 [facility] Erythrocyte Sed 3 mm/Hr 0-[address] [place] [address] [phone] CBC With Manual 09/14/2012 [facility] White Blood 6.1 4.8- 10.[address] Count 10^3/[place] [address] [phone] Red Blood Count 4.14 10^6/uL 4.0-5.4 Hemoglobin 12.7 g/dL 12.0-16.0 Hematocrit 39 % 35-47 Mean Corpuscular Volume 93 fL 80-97 Mean Corpuscular Hemoglobin 31 pg 27-31 Mean Corpuscular HGB Conc 33 g/dL 31-36 Red Cell Distribution Width 13 % 10.5-15 Platelet Count 247 10^3/uL 150-450 Mean Platelet Volume 10 um3 7.4-10.4 Abs Neutrophils 3.6 10^3/uL 1.5-7.7 Abs Lymphocytes 1.9 10^3/uL 1.0-4.8 Abs Monocytes 0.5 10^3/uL 0-0.8 Abs Eosinophils 0.1 10^3/uL 0-0.6 Abs Basophils 0.1 10^3/uL 0-0.2 Abs Nucleated RBC 0.01 10^3/uL Neutrophil % 64 % 38-83 Lymphocytes % 27 % 25-47 Monocytes % 6 % 0-13 Eosinophils % 1 % 0-6 Reactive Lymph % 2 % 0-6 RBC Morphology Normal Normal Laboratory test 09/14/2012 [facility] C Reactive 0.5 mg/dL Less than finding [address] Protein 0.5 [place] [address] [phone] Erythrocyte Sed Rate 7 mm/Hr 0-30 Liver Function 09/14/2012 [facility] Total Protein 5.9 g/dL Low 6.2-8.[address] [place] [address] [phone] Albumin 3.8 g/dL 3.6-5.4 Globulin 2.1 g/dL 2-4 Albumin/Globulin Ratio 1.8 1-3 Total Bilirubin 0.7 mg/dL 0.4-1.5 Direct Bilirubin 0.2 mg/dL 0.1-0.5 Indirect Bilirubin 0.5 mg/dL 0.3-1.0 Alkaline Phosphatase 34 U/L 30-110 Alt 16 U/L 14-54 Ast 20 U/L 12-42 Basic Metabolic Panel 09/14/2012 [facility] Sodium 134 mmol/L 133-[address] [place] [address] [phone] Potassium 4.8 mmol/L 3.5-5.0 Chloride 100 mmol/L Low 101-111 Co2 Carbon Dioxide 26.0 mmol/L 22-32 Anion Gap 8.0 mmol/L 2-11 Glucose 106 mg/dL High 70-100 Blood Urea Nitrogen 23 mg/dL 6-24 Creatinine 0.80 mg/dL 0.50-1.40 BUN/Creatinine Ratio 28.8 High 8-20 Calcium 9.3 mg/dL 8.1-9.9 Egfr Non- 73.4 >60 Egfr 94.4 >60 37 CBC With 06/17/2012 [facility] White Blood 8.1 10^3/uL 4.8- 10.8 Manual Diff [address] [place] [address] [phone] Red Blood Count 3.94 10^6/uL Low 4.0-5.4 Hemoglobin 12.1 g/dL 12.0-16.0 Hematocrit 37 % 35-47 Mean Corpuscular Volume 94 fL 80-97 Mean Corpuscular Hemoglobin 31 pg 27-31 Mean Corpuscular HGB Conc 33 g/dL 31-36 Red Cell Distribution Width 13 % 10.5-15 Platelet Count 257 10^3/uL 150-450 Mean Platelet Volume 9 um3 7.4-10.4 Abs Neutrophils 5.5 10^3/uL 1.5-7.7 Abs Lymphocytes 1.7 10^3/uL 1.0-4.8 Abs Monocytes 0.6 10^3/uL 0-0.8 Abs Eosinophils 0.2 10^3/uL 0-0.6 Abs Basophils 0.1 10^3/uL 0-0.2 Abs Nucleated RBC 0.01 10^3/uL Neutrophil % 62 % 38-83 Lymphocytes % 28 % 25-47 Monocytes % 10 % 0-13 RBC Morphology Normal Normal Laboratory test 06/17/2012 [facility] Erythrocyte Sed 10 mm/Hr 0-[address] [place] [address] [phone] Laboratory test 06/17/2012 [facility] C Reactive 1.5 mg/dL High Less finding [address] Protein than 0.5 [place] [address] [phone] Comp Metabolic 06/17/2012 [facility] Sodium 135 133-[address] mmol/[place] [address] [phone] Potassium 4.8 mmol/L 3.5-5.0 Chloride 102 mmol/L 101-111 Co2 Carbon Dioxide 28.0 mmol/L 22-32 Anion Gap 5.0 mmol/L 2-11 Glucose 93 mg/dL 70-100 Blood Urea Nitrogen 18 mg/dL 6-24 Creatinine 0.90 mg/dL 0.50-1.40 BUN/Creatinine Ratio 20.0 8-20 Calcium 9.5 mg/dL 8.1-9.9 Total Protein 6.0 g/dL Low 6.2-8.1 Albumin 3.8 g/dL 3.6-5.4 Globulin 2.2 g/dL 2-4 Albumin/Globulin Ratio 1.7 1-3 Total Bilirubin 0.5 mg/dL 0.4-1.5 Alkaline Phosphatase 57 U/L 30-110 Alt 24 U/L 14-54 Ast 30 U/L 12-42 Egfr Non- 64.3 >60 Egfr 82.7 >60 38 Basic Metabolic Panel 02/17/2012 [facility] Sodium 135 mmol/L 133-[address] [place] [address] [phone] Potassium 4.2 mmol/L 3.5-5.0 Chloride 101 mmol/L 101-111 Co2 Carbon Dioxide 26.0 mmol/L 22-32 Anion Gap 8.0 mmol/L 2-11 Glucose 86 mg/dL 70-100 Blood Urea Nitrogen 17 mg/dL 6-24 Creatinine 0.70 mg/dL 0.50-1.40 BUN/Creatinine Ratio 24.3 High 8-20 Calcium 9.1 mg/dL 8.1-9.9 Egfr Non- 85.9 >60 Egfr 110.5 >60 39 Liver Function 02/17/2012 [facility] Total Protein 5.7 GM/DL Low 6.2-8.[address] [place] [address] [phone] Albumin 3.6 GM/DL 3.6-5.4 Globulin 2.1 GM/DL 2-4 Albumin/Globulin Ratio 1.7 1-3 Total Bilirubin 0.4 mg/dL 0.1-1.0 40 Direct Bilirubin 0.1 mg/dL 0.1-0.5 Indirect Bilirubin 0.3 mg/dL 0.3-1.0 Alkaline Phosphatase 51 U/L 30-110 Alt 17 U/L 14-54 Ast 18 U/L 12-42 Laboratory test 02/17/2012 [facility] C Reactive 4.3 mg/dL High Less Than finding [address] Protein 0.5 [place] [address] [phone] CBC With Manual 02/17/2012 [facility] White Blood 8.7 4.8- 10.[address] Count 10^3/[place] [address] [phone] Red Blood Count 4.15 10^6/uL 4.0-5.4 Hemoglobin 12.8 g/dL 12.0-16.0 Hematocrit 39 % 35-47 Mean Corpuscular Volume 94 fL 80-97 Mean Corpuscular Hemoglobin 31 pg 27-31 Mean Corpuscular HGB Conc 33 g/dL 31-36 Red Cell Distribution Width 14 % 10.5-15 Platelet Count 230 10^3/uL 150-450 Mean Platelet Volume 9 um3 7.4-10.4 Abs Neutrophils 6.4 10^3/uL 1.5-7.7 Abs Lymphocytes 1.5 10^3/uL 1.0-4.8 Abs Monocytes 0.6 10^3/uL 0-0.8 Abs Eosinophils 0.1 10^3/uL 0-0.6 Abs Basophils 0.1 10^3/uL 0-0.2 Abs Nucleated RBC 0 10^3/uL Neutrophil % 69.0 % 38-83 Band % 3.0 % 0-8 Lymphocytes % 21.0 % Low 25-47 Monocytes % 6.0 % 0-13 Eosinophils % 0 % 0-6 Basophil % 0 % 0-2 Reactive Lymph % 1.0 % 0-6 Metamyelocytes % 0 % 0-2 Myelocytes % 0 % 0-1 Promyelocytes % 0 % Blast % 0 % RBC Morphology Normal Normal Laboratory test 02/17/2012 [facility] Erythrocyte Sed 9 MM/HR 0-[address] [place] [address] [phone] Culture Throat 02/17/2012 [facility] Throat Culture (SEE NOTE) [address] [place] [address] [phone] Basic Metabolic 12/23/2011 [facility] Sodium 140 mmol/L 135- [address] [place] [address] [phone] Potassium 4.8 mmol/L 3.5-5.0 Chloride 106 mmol/L 101-111 Co2 (Carbon Dioxide) 29.0 mmol/L 22-32 Anion Gap 5.0 mmol/L 2-11 42 Glucose 90 mg/dL 70-100 BUN 11 mg/dL 6-24 Creatinine 0.8 mg/dL 0.50-1.40 One Over Creatinine 1.25 BUN/Creatinine Ratio 13.8 8-20 Calcium 9.4 mg/dL 8.1-9.9 eGFR Non- 73.7 > 60 eGFR 94.7 > 60 43 Liver Function 12/23/2011 [facility] Total Protein 6.2 GM/DL 6.2-8.1 Panel [address] [place] [address] [phone] Albumin 3.6 GM/DL 3.6-5.4 Globulin 2.6 GM/DL 2-4 Albumin/Globulin Ratio 1.4 1-3 Bilirubin Total 0.6 mg/dL 0.4-1.5 44 Bilirubin Direct 0.1 mg/dL 0.1-0.5 Indirect Bilirubin 0.5 mg/dL 0.3-1.0 45 Alkaline Phosphatase 78 U/L 30-110 Alt (SGPT) 27 U/L 14-54 Ast (Sgot) 31 U/L 12-42 Lipid Profile 12/23/2011 [facility] Triglyceride 250 mg/dL High 40-200 (Trig/Chol/HDL) [address] [place] [address] [phone] Cholesterol 197 mg/dL Less Than 200 46 High Density Lipoprotein 53 mg/dL 40-60 47 Cholesterol/HDL Ratio 3.72 AVERAGE 1-4.44 Low Density Lipoprotein 94 mg/dL Less Than 100 48 Laboratory test 12/23/2011 [facility] Erythrocyte Sed 15 MM/HR 0-[address] [place] [address] [phone] CBC With Manual 12/23/2011 [facility] White Blood 5.2 CUMM 4.8-10.[address] [place] [address] [phone] Red Cell Count 4.09 CUMM Low 4.2-5.4 Hemoglobin 13.0 g/dL 12.0-16.0 Hematocrit 38 % 35-47 Mean Corpuscular Volume 93 um3 79-97 Mean Corpuscular Hemoglob 32 pg High 27-31 Mean Corpuscular HGB Cone 34 g/dL 32-36 Redcell Distribution WDTH 13 % 10.5-15 Platelet Count 205 CUMM 150-450 Mean Platelet Volume 8.9 um3 7.4-10.4 Absolute Neutrophil Count 2.8 1.5-7.7 Polysegmented Neutrophil 51 % 38-83 Band Neutrophil 1 % 0-8 Lymphocyte 38 % 25-47 Monocyte 7 % 0-13 Eosinophil 1 % 0-6 Basophil 2 % 0-2 RBC Morphology NORMAL Laboratory test 12/23/2011 [facility] C Reactive 8.0 mg/dL High Less Than finding [address] Protein 0.5 [place] [address] [phone] CBC Auto Diff 09/16/2011 [facility] White Blood 5.1 CUMM 4.8- 10.[address] [place] [address] [phone] Red Cell Count 4.00 CUMM Low 4.2-5.4 Hemoglobin 12.5 g/dL 12.0-16.0 Hematocrit 36 % 35-47 Mean Corpuscular Volume 90 um3 79-97 Mean Corpuscular Hemoglob 31 pg 27-31 Mean Corpuscular HGB Cone 35 g/dL 32-36 Redcell Distribution WDTH 13 % 10.5-15 Platelet Count 248 CUMM 150-450 Mean Platelet Volume 9.9 um3 7.4-10.4 Gran % 53.2 % 38-83 Lymph % 36.7 % 25-47 Mononuclear % 6.4 % 1-9 Eosinophil % 2.5 % 0-6 Basophil % 1.2 % 0-2 Abs Lymphs 1.9 1.0-4.8 Abs Mononuclear 0.3 0-0.8 Absolute Neutrophil Count 2.7 1.5-7.7 Abs Eosinophils 0.1 0-0.6 Abs Basophils 0.1 0-0.2 Basic Metabolic Panel 09/16/2011 [facility] Sodium 137 mmol/L 135-[address] [place] [address] [phone] Potassium 4.9 mmol/L 3.5-5.0 Chloride 103 mmol/L 101-111 Co2 (Carbon Dioxide) 29.0 mmol/L 22-32 Anion Gap 5.0 mmol/L 2-11 49 Glucose 121 mg/dL High 70-100 BUN 14 mg/dL 6-24 Creatinine 0.8 mg/dL 0.50-1.40 One Over Creatinine 1.25 BUN/Creatinine Ratio 17.5 8-20 Calcium 9.6 mg/dL 8.1-9.9 eGFR Non- 73.7 > 60 eGFR 94.7 > 60 50 Liver Function 09/16/2011 [facility] Total Protein 6.1 GM/DL Low 6.2-8.[address] [place] [address] [phone] Albumin 3.7 GM/DL 3.6-5.4 Globulin 2.4 GM/DL 2-4 Albumin/Globulin Ratio 1.5 1-3 Bilirubin Total 0.6 mg/dL 0.4-1.5 51 Bilirubin Direct 0.0 mg/dL Low 0.1-0.5 Indirect Bilirubin (SEE NOTE) mg/dL 0.3-1.0 52 Alkaline Phosphatase 44 U/L 30-110 Alt (SGPT) 17 U/L 14-54 Ast (Sgot) 25 U/L 12-42 Laboratory test 09/16/2011 [facility] C Reactive < 0.5 mg/dL Less Than finding [address] Protein 0.5 [place] [address] [phone] Erythrocyte Sed Rate 7 MM/HR 0-30 Laboratory test 02/27/2011 [facility] C Reactive < 0.5 Less Than [address] Protein mg/dL 0.5 [place] [address] [phone] CBC With Manual 02/27/2011 [facility] White Blood 8.1 CUMM 4.8-10.[address] [place] [address] [phone] Red Cell Count 4.30 CUMM 4.2-5.4 Hemoglobin 13.6 g/dL 12.0-16.0 Hematocrit 40 % 35-47 Mean Corpuscular Volume 92 um3 79-97 Mean Corpuscular Hemoglob 32 pg High 27-31 Mean Corpuscular HGB Cone 34 g/dL 32-36 Redcell Distribution WDTH 13 % 10.5-15 Platelet Count 269 CUMM 150-450 Mean Platelet Volume 9.5 um3 7.4-10.4 Polysegmented Neutrophil 68 % 38-83 Lymphocyte 30 % 25-47 Monocyte 1 % 0-13 Basophil 1 % 0-2 Absolute Neutrophil Count 5.5 RBC Morphology NORMAL Laboratory test 02/27/2011 [facility] Erythrocyte Sed 11 MM/HR 0-[address] [place] [address] [phone] Liver Function 02/27/2011 [facility] Total Protein 6.8 GM/DL 6.2-8.[address] [place] [address] [phone] Albumin 4.4 GM/DL 3.6-5.4 Globulin 2.4 GM/DL 2-4 Albumin/Globulin Ratio 1.8 1-3 Bilirubin Total 0.4 mg/dL 0.4-1.5 54 Bilirubin Direct 0.1 mg/dL 0.1-0.5 Indirect Bilirubin 0.3 mg/dL 0.3-1.0 55 Alkaline Phosphatase 43 U/L 30-110 Alt (SGPT) 16 U/L 14-54 Ast (Sgot) 21 U/L 12-42 Basic Metabolic Panel 02/27/2011 [facility] Sodium 137 mmol/L 135-[address] [place] [address] [phone] Potassium 4.2 mmol/L 3.5-5.0 Chloride 104 mmol/L 101-111 Co2 (Carbon Dioxide) 26.0 mmol/L 22-32 Anion Gap 7.0 mmol/L 2-11 56 Glucose 90 mg/dL 70-100 BUN 22 mg/dL 6-24 Creatinine 0.7 mg/dL 0.50-1.40 One Over Creatinine 1.42 BUN/Creatinine Ratio 31.4 High 8-20 Calcium 9.7 mg/dL 8.1-9.9 eGFR Non- 86.2 > 60 eGFR 110.9 > 60 57 Type And Screen 02/27/2011 [facility] Patient Blood B POSITIVE (Pre-Adm) [address] Type [place] [address] [phone] Antibody Screen NEGATIVE Specimen Discard Date 03/13/2011 58 1 SEE RESULT BELOW Name: SOPHIE PERKINS : [address]: Martina Bautista MD Acct: [id number] Unit: [id number] AGE: 62 Location: OR Re05/27/18 SEX: F Status: [facility] [place]C: [id number] RYAN: 05/27/18-1210 [facility] [address]: Martina Bautista MD REQ: [id number] RECD: 05/27/18-1222 STATUS: SOUT _ ORDERED: LEVEL 5, IMMUNO-QUANT/3 ADDENDUM Addendum: The following immunochemical stains are performed with appropriate controls on block G. 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 Overall Goodridge grade: 1/3 (3/9 points). Tubule formation: 1. Nuclear grade: 1. Mitotic count: 1. Margins: Invasive tumor is clear of all inked margins. By greater than 5 mm Lymphovascular invasion: Not seen. Skin: Not involved. Chest-wall / pectoralis involvement: Not seen. Ductal carcinoma in situ (DCIS): Present. Size: 3 mm. Extent and distribution: Single focus seen not extensive. Architectural pattern: Solid. Nuclear grade: 1. CONTINUED ON NEXT PAGE DEPARTMENT OF PATHOLOGY, [address] [place] [address] Reji Perales M.D. Director [facility] # [id number] RUN DATE: 05/31/18 [facility] LAB LIVE PAGE 2 Patient: SOPHIE PERKINS [id number] (Continued) FINAL DIAGNOSIS (Continued) Necrosis: Not seen. Margins: DCIS clear of all margins by greater than 5 mm. ER, ME, Her2/etelvina by immunohistochemistry with appropriate controls: ER: Pending. ME: Pending. Her2/etelvina: Pending . Microcalcifications: Microcalcifications are seen in association with invasive carcinoma as well as benign breast tissue.. Other findings: Prior biopsy site related changes with hemorrhage. Nonproliferative fibrocystic change.. pTNM histopathologic stage: pT 1B NxM N/A. PRE-OPERATIVE DIAGNOSIS Atypia left breast, usual suture markings GROSS DESCRIPTION The specimen is received fresh labeled, Left Breast Tissue, and consists of a 9.0 x 7.6 x 2.9 cm yellow ovoid portion of fibrofatty soft tissue with three attached sutures which are designated as follows: long-lateral, short-superior and medium-medial. The specimen is partially surfaced by a 3.8 by up to 0.6 cm dalton-white wrinkled skin ellipse on the mid to superior anteromedial aspect. There is a needle localization wire entering the specimen through and superficially extending inferior to the skin ellipse. There is a 2.3 x 2.0 x 1.8 cm well-defined hemorrhagic area within the medial specimen associated with the localization wire, 0.5 cm from the inferior anterior margin. The surrounding tissue is focally rubbery yellow-white ill-defined and focally gelatinous. The remaining cut surface consists predominantly of yellow lobulated adipose tissue with mild interspersed dusky dalton-white focally hemorrhagic fibrous tissue. The specimen is inked as follows: superior anterior-blue, inferior anterior-green and deep-black, serially sectioned from lateral to medial and technology sales representative sections are submitted in cassettes A through M to include hemorrhagic and rubbery area in cassettes E through M including section associated with wire in cassettes I and J. CONTINUED ON NEXT PAGE DEPARTMENT OF PATHOLOGY, [address] [place] [id number] Reji Perales M.D. Director [facility] # [id number] RUN DATE: 05/31/18 [facility] LAB LIVE PAGE 3 Patient: SOPHIE PERKINS [id number] (Continued) GROSS DESCRIPTION (Continued) Signed by and Reported on: Reji Perales MD 1613 END OF REPORT DEPARTMENT OF PATHOLOGY, [address] [place], [place] [id number] Reji Perales M.D. Director [facility] # [id number] 2 Because ethnic data is not always readily available, this report includes an eGFR for both -Americans and non- Americans. The National Kidney Disease Education Program (NKDEP) does not endorse the use of the MDRD equation for patients that are not between the ages of 18 and 70, are , have extremes of body size, muscle mass, or nutritional status, or are non- or non-. According to the National Kidney Foundation, irrespective of diagnosis, the stage of the disease is based on the level of kidney function: Stage Description GFR(mL/min/1.73 m(2)) 1 Kidney damage with normal or decreased GFR 90 2 Kidney damage with mild decrease in GFR 60-89 3 Moderate decrease in GFR 30-59 4 Severe decrease in GFR 15-29 5 Kidney failure <15 (or dialysis) 3 REFERENCE VALUE <1.0 (Negative) Test Performed by: [place] [address] Home Office Representative: Darrell Ruiz II, M.D., Ph.D. 4 REFERENCE VALUE <1.0 (Negative) Test Performed by: [place] [address] Home Office Representative: Darrell Ruiz II, M.D., Ph.D. 5 REFERENCE VALUE <1.0 (Negative) 6 REFERENCE VALUE <1.0 (Negative) Test Performed by: [place] [address] Home Office Representative: Darrell Ruiz II, M.D., Ph.D. 7 ADDITIONAL INFORMATION Laboratory developed test Test Performed by: [place] [address] Home Office Representative: Darrell Ruiz II, M.D., Ph.D. 8 Test Performed by: [place] [address] Home Office Representative: Darrell Ruiz II, M.D., Ph.D. 9 Test Performed by: [place] [address] Home Office Representative: Darrell Ruiz II, M.D., Ph.D. 10 Negative for cANCA and pANCA patterns by immunofluorescence. Test Performed by: [place] [address] Home Office Representative: Darrell Ruiz II, M.D., Ph.D. 11 Acute inflammation: >10.00 12 REFERENCE VALUE <20.0 (Negative) Test Performed by: [place] [address] Home Office Representative: Darrell Ruiz II, M.D., Ph.D. 13 Test Performed by: [place] [address] Home Office Representative: Darrell Ruiz II, M.D., Ph.D. 14 Because ethnic data is not always readily available, this report includes an eGFR for both -Americans and non- Americans. The National Kidney Disease Education Program (NKDEP) does not endorse the use of the MDRD equation for patients that are not between the ages of 18 and 70, are , have extremes of body size, muscle mass, or nutritional status, or are non- or non-. According to the National Kidney Foundation, irrespective of diagnosis, the stage of the disease is based on the level of kidney function: Stage Description GFR(mL/min/1.73 m(2)) 1 Kidney damage with normal or decreased GFR 90 2 Kidney damage with mild decrease in GFR 60-89 3 Moderate decrease in GFR 30-59 4 Severe decrease in GFR 15-29 5 Kidney failure <15 (or dialysis) 15 Because ethnic data is not always readily available, this report includes an eGFR for both -Americans and non- Americans. The National Kid[employer] Disease Education Program (NKDEP) does not endorse the use of the MDRD equation for patients that are not between the ages of 18 and 70, are , have extremes of body size, muscle mass, or nutritional status, or are non- or non-. According to the [employer], irrespective of diagnosis, the stage of the disease is based on the level of kidney function: Stage Description GFR(mL/min/1.73 m(2)) 1 Kidney damage with normal or decreased GFR 90 2 Kidney damage with mild decrease in GFR 60-89 3 Moderate decrease in GFR 30-59 4 Severe decrease in GFR 15-29 5 Kidney failure <15 (or dialysis) 16 RESULT: No apparent monoclonal protein on serum electrophoresis. Test Performed by: [place] [address] Home Office Representative: Darrell Ruiz II, M.D., Ph.D. 17 Serologic response to B. burgdorferi infection is not detected, but cannot rule out early infection during which low or undetectable antibody levels to B. burgdorferi may be present. If clinically indicated, a new serum specimen should be submitted in 7-14 days. Test Performed by: [place] [address] Home Office Representative: Darrell Ruiz II, M.D., Ph.D. 18 REFERENCE VALUE <1.0 (Negative) 19 REFERENCE VALUE <1.0 (Negative) Test Performed by: [place] [address] Home Office Representative: Darrell Ruiz II, M.D., Ph.D. 20 Normal Range 180 to 914 Indeterminate Range 145 to 180 Deficient Range <145 21 Because ethnic data is not always readily available, this report includes an eGFR for both -Americans and non- Americans. The National Kidney Disease Education Program (NKDEP) does not endorse the use of the MDRD equation for patients that are not between the ages of 18 and 70, are , have extremes of body size, muscle mass, or nutritional status, or are non- or non-. According to the National Kidney Foundation, irrespective of diagnosis, the stage of the disease is based on the level of kidney function: Stage Description GFR(mL/min/1.73 m(2)) 1 Kidney damage with normal or decreased GFR 90 2 Kidney damage with mild decrease in GFR 60-89 3 Moderate decrease in GFR 30-59 4 Severe decrease in GFR 15-29 5 Kidney failure <15 (or dialysis) 22 The above ISABEL screen is designed for the detection of antibodies to extractable nuclear antigen (ISABEL) in human serum. It is a combination test for the detection of antibodies to SHIPPING CHECKER, Sm, SS-A (Ro), and SS-B (La) nuclear antigens. 23 Negative for cANCA and pANCA patterns by immunofluorescence. Test Performed by: [place] [address] Home Office Representative: Darrell Ruiz II, M.D., Ph.D. 24 Acute inflammation: >10.00 25 REFERENCE VALUE <1.0 (Negative) Test Performed by: [place] [address] Home Office Representative: Darrell Ruiz II, M.D., Ph.D. 26 Because ethnic data is not always readily available, this report includes an eGFR for both -Americans and non- Americans. The National Kidney Disease Education Program (NKDEP) does not endorse the use of the MDRD equation for patients that are not between the ages of 18 and 70, are , have extremes of body size, muscle mass, or nutritional status, or are non- or non-. According to the National Kidney Foundation, irrespective of diagnosis, the stage of the disease is based on the level of kidney function: Stage Description GFR(mL/min/1.73 m(2)) 1 Kidney damage with normal or decreased GFR 90 2 Kidney damage with mild decrease in GFR 60-89 3 Moderate decrease in GFR 30-59 4 Severe decrease in GFR 15-29 5 Kidney failure <15 (or dialysis) 27 Low risk: <1.00 Average risk: 1.00-3.00 High risk: >3.00 28 Because ethnic data is not always readily available, this report includes an eGFR for both -Americans and non- Americans. The National Kidney Disease Education Program (NKDEP) does not endorse the use of the MDRD equation for patients that are not between the ages of 18 and 70, are , have extremes of body size, muscle mass, or nutritional status, or are non- or non-. According to the National Kidney Foundation, irrespective of diagnosis, the stage of the disease is based on the level of kidney function: Stage Description GFR(mL/min/1.73 m(2)) 1 Kidney damage with normal or decreased GFR 90 2 Kidney damage with mild decrease in GFR 60-89 3 Moderate decrease in GFR 30-59 4 Severe decrease in GFR 15-29 5 Kidney failure <15 (or dialysis) 29 Acute inflammation: >10.00 30 Acute inflammation: >10.00 31 Because ethnic data is not always readily available, this report includes an eGFR for both -Americans and non- Americans. The National Kidney Disease Education Program (NKDEP) does not endorse the use of the MDRD equation for patients that are not between the ages of 18 and 70, are , have extremes of body size, muscle mass, or nutritional status, or are non- or non-. According to the National Kidney Foundation, irrespective of diagnosis, the stage of the disease is based on the level of kidney function: Stage Description GFR(mL/min/1.73 m(2)) 1 Kidney damage with normal or decreased GFR 90 2 Kidney damage with mild decrease in GFR 60-89 3 Moderate decrease in GFR 30-59 4 Severe decrease in GFR 15-29 5 Kidney failure <15 (or dialysis) 32 CBC and smear reviewed. Inverted PMN/lymph ratio noted. No blasts seen. Reviewed by Gilma López MD 33 Because ethnic data is not always readily available, this report includes an eGFR for both -Americans and non- Americans. The National Kidney Disease Education Program (NKDEP) does not endorse the use of the MDRD equation for patients that are not between the ages of 18 and 70, are , have extremes of body size, muscle mass, or nutritional status, or are non- or non-. According to the National Kidney Foundation, irrespective of diagnosis, the stage of the disease is based on the level of kidney function: Stage Description GFR(mL/min/1.73 m(2)) 1 Kidney damage with normal or decreased GFR 90 2 Kidney damage with mild decrease in GFR 60-89 3 Moderate decrease in GFR 30-59 4 Severe decrease in GFR 15-29 5 Kidney failure <15 (or dialysis) 34 Low risk: <1.0 mg/L Average risk: 1.0-3.0 mg/L High risk: >3.0 mg/L Acute inflammation: >10.0 mg/L 35 Because ethnic data is not always readily available, this report includes an eGFR for both -Americans and non- Americans. The National Kidney Disease Education Program (NKDEP) does not endorse the use of the MDRD equation for patients that are not between the ages of 18 and 70, are , have extremes of body size, muscle mass, or nutritional status, or are non- or non-. According to the National Kidney Foundation, irrespective of diagnosis, the stage of the disease is based on the level of kidney function: Stage Description GFR(mL/min/1.73 m(2)) 1 Kidney damage with normal or decreased GFR 90 2 Kidney damage with mild decrease in GFR 60-89 3 Moderate decrease in GFR 30-59 4 Severe decrease in GFR 15-29 5 Kidney failure <15 (or dialysis) 36 Because ethnic data is not always readily available, this report includes an eGFR for both -Americans and non- Americans. The National Kidney Disease Education Program (NKDEP) does not endorse the use of the MDRD equation for patients that are not between the ages of 18 and 70, are , have extremes of body size, muscle mass, or nutritional status, or are non- or non-. According to the National Kidney Foundation, irrespective of diagnosis, the stage of the disease is based on the level of kidney function: Stage Description GFR(mL/min/1.73 m(2)) 1 Kidney damage with normal or decreased GFR 90 2 Kidney damage with mild decrease in GFR 60-89 3 Moderate decrease in GFR 30-59 4 Severe decrease in GFR 15-29 5 Kidney failure <15 (or dialysis) 37 Because ethnic data is not always readily available, this report includes an eGFR for both -Americans and non- Americans. The National Kidney Disease Education Program (NKDEP) does not endorse the use of the MDRD equation for patients that are not between the ages of 18 and 70, are , have extremes of body size, muscle mass, or nutritional status, or are non- or non-. According to the National Kidney Foundation, irrespective of diagnosis, the stage of the disease is based on the level of kidney function: Stage Description GFR(mL/min/1.73 m(2)) 1 Kidney damage with normal or decreased GFR 90 2 Kidney damage with mild decrease in GFR 60-89 3 Moderate decrease in GFR 30-59 4 Severe decrease in GFR 15-29 5 Kidney failure <15 (or dialysis) 38 Because ethnic data is not always readily available, this report includes an eGFR for both -Americans and non- Americans. The National Kidney Disease Education Program (NKDEP) does not endorse the use of the MDRD equation for patients that are not between the ages of 18 and 70, are , have extremes of body size, muscle mass, or nutritional status, or are non- or non-. According to the National Kidney Foundation, irrespective of diagnosis, the stage of the disease is based on the level of kidney function: Stage Description GFR(mL/min/1.73 m(2)) 1 Kidney damage with normal or decreased GFR 90 2 Kidney damage with mild decrease in GFR 60-89 3 Moderate decrease in GFR 30-59 4 Severe decrease in GFR 15-29 5 Kidney failure <15 (or dialysis) 39 Because ethnic data is not always readily available, this report includes an eGFR for both -Americans and non- Americans. The National Kidney Disease Education Program (NKDEP) does not endorse the use of the MDRD equation for patients that are not between the ages of 18 and 70, are , have extremes of body size, muscle mass, or nutritional status, or are non- or non-. According to the National Kidney Foundation, irrespective of diagnosis, the stage of the disease is based on the level of kidney function: Stage Description GFR(mL/min/1.73 m(2)) 1 Kidney damage with normal or decreased GFR 90 2 Kidney damage with mild decrease in GFR 60-89 3 Moderate decrease in GFR 30-59 4 Severe decrease in GFR 15-29 5 Kidney failure <15 (or dialysis) 40 A metabolite of Naproxen, O-desmethylnaproxen, has been shown to interfere with the Jendrassik-Copemish method for measuring total bilirubin. Samples from patients who have taken Naproxen have shown spurious elevation in total bilirubin levels. 41 RUN DATE: 02/19/12 [facility] LAB LIVE PAGE 1 RUN TIME: [address] [place], [place] [address] Specimen Inquiry Name: SOPHIE PERKINS : [address]: Tia Hutchinson MD Acct: [id number] Unit: [id number] AGE: 56 Location: [facility] Re02/17/12 SEX: F Status: REG REF SPEC: [id number] RYAN: 02/17/12-12[address] [facility] [address]: Tia Hutchinson MD REQ: [id number] RECD: 02/17/125820 STATUS: LEANN URRUTIA DR: Luis Wooten MD _ SOURCE: THROAT SPDESC: ORDERED: Throat Culture Procedure Result Verified Site Throat Culture Final 02/19/12- 1133 ML Organism 1 NORMAL OPAL Quantity 3+ Throat cultures are clinically indicated to detect the presence of group A strep, arcanobacterium and yeast. END OF REPORT * ML=Testing performed at Main Lab DEPARTMENT OF PATHOLOGY, [address] [place] [address] Reji Perales M.D. Director [facility] Permit #[id number] 42 Anion gap measurement may be of limited value in the presence of any alkalosis, especially in a combined acid base disorder. . 43 Because ethnic data is not always readily available, this report includes an eGFR for both -Americans and non- Americans. The National Kidney Disease Education Program (NKDEP) does not endorse the use of the MDRD equation for patients that are not between the ages of 18 and 70, are , have extremes of body size, muscle mass, or nutritional status, or are non- or non-. According to the National Kidney Foundation, irrespective of diagnosis, the stage of the disease is based on the level of kidney function: Stage Description GFR(mL/min/1.73 m(2)) 1 Kidney damage with normal or decreased GFR 90 2 Kidney damage with mild decrease in GFR 60-89 3 Moderate decrease in GFR 30-59 4 Severe decrease in GFR 15-29 5 Kidney failure <15 (or dialysis) 44 A metabolite of Naproxen, O-desmethylnaproxen, has been shown to interfere with the Jendrassik-Geoffrey method for measuring total bilirubin. Samples from patients who have taken Naproxen have shown spurious elevation in total bilirubin levels. 45 Please note updated reference range, effective 11/21/09 46 CHOLESTEROL INTERPRETATION: Desirable: Less than 200 MG/DL Borderline-High Risk: 200-239 MG/DL High-Risk: 240 MG/DL and over 47 HDL INTERPRETATION: Undesirable: High Risk: Less than 40 MG/DL Desirable: Low Risk: Greater than 60 MG/DL 48 LDL INTERPRETATION: Low Risk Optimal Level: LDL Less than 100 MG/DL Near or Above Optimal: LDL 100-129 MG/DL Borderline High Risk: LDL 130-159 MG/DL High Risk: LDL 160-189 MG/DL Very High Risk: LDL Greater than 189 MG/DL 49 Anion gap measurement may be of limited value in the presence of any alkalosis, especially in a combined acid base disorder. . 50 Because ethnic data is not always readily available, this report includes an eGFR for both -Americans and non- Americans. The National Kidney Disease Education Program (NKDEP) does not endorse the use of the MDRD equation for patients that are not between the ages of 18 and 70, are , have extremes of body size, muscle mass, or nutritional status, or are non- or non-. According to the National Kidney Foundation, irrespective of diagnosis, the stage of the disease is based on the level of kidney function: Stage Description GFR(mL/min/1.73 m(2)) 1 Kidney damage with normal or decreased GFR 90 2 Kidney damage with mild decrease in GFR 60-89 3 Moderate decrease in GFR 30-59 4 Severe decrease in GFR 15-29 5 Kidney failure <15 (or dialysis) 51 A metabolite of Naproxen, O-desmethylnaproxen, has been shown to interfere with the Jendrassik-Geoffrey method for measuring total bilirubin. Samples from patients who have taken Naproxen have shown spurious elevation in total bilirubin levels. 52 UNABLE TO CALCULATE IND.BILI D.BILI IS <0.1 Please note updated reference range, effective 11/21/09 53 SDS 03/06 54 A metabolite of Naproxen, O-desmethylnaproxen, has been shown to interfere with the Jendrassik-Copemish method for measuring total bilirubin. Samples from patients who have taken Naproxen have shown spurious elevation in total bilirubin levels. 55 Please note updated reference range, effective 11/21/09 56 Anion gap measurement may be of limited value in the presence of any alkalosis, especially in a combined acid base disorder. . 57 Because ethnic data is not always readily available, this report includes an eGFR for both -Americans and non- Americans. The National Kidney Disease Education Program (NKDEP) does not endorse the use of the MDRD equation for patients that are not between the ages of 18 and 70, are , have extremes of body size, muscle mass, or nutritional status, or are non- or non-. According to the National Kidney Foundation, irrespective of diagnosis, the stage of the disease is based on the level of kidney function: Stage Description GFR(mL/min/1.73 m(2)) 1 Kidney damage with normal or decreased GFR 90 2 Kidney damage with mild decrease in GFR 60-89 3 Moderate decrease in GFR 30-59 4 Severe decrease in GFR 15-29 5 Kidney failure <15 (or dialysis) 58 PREADMISSION TESTING SAMPLES FOR BLOOD BANK WILL BE HELD FOR 14 DAYS FROM THE DATE OF COLLECTION *IF* THE FOLLOWING CRITERIA ARE MET: 1) THE PATIENT HAS *NOT* BEEN IN THE LAST 3 MONTHS. 2) THE PATIENT HAS *NOT* BEEN TRANSFUSED IN THE LAST 3 MONTHS. PREADMISSION TESTING SAMPLES WILL *NOT* BE HELD FOR 14 DAYS FROM PATIENTS WHO IN THE LAST 3 MONTHS: 1) HAVE BEEN 2) HAVE BEEN TRANSFUSED THESE PATIENTS *MUST* BE COLLECTED WITHIN 3 DAYS OF THE SURGERY DATE. Procedures Date Code Description Status 05/27/2018 [id number] Mammogram Completed 05/04/2018 [id number] Mammogram Completed 04/20/2018 [id number] Mammogram Completed 04/14/2017 [id number] Mammogram Completed 11/16/2014 [id number] Nerve Conduction 03-04 Studies Completed Encounters Type Date Location Provider Dx Diagnosis Office Visit 05/11/2018 [facility] R92.8 Oth abn and 10:00a Of Connie Bautista MD inconclusive findings on dx imaging of breast Office Visit 05/16/2015 [facility] H62.43 Otitis externa in 11:00a 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 Neuritis & Radiculitis Unspec 323.52 Myelitis Following Immunization Procedures Office Visit 10/02/2014 1:00p [facility] Mick S. 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 729.2 Neuralgia Neuritis & Radiculitis Unspec Office Visit 06/29/2014 10:30a Rheumatology Ever Quintana, 995.3 Allergy Unspec [facility] CONCRETE PRECAST MOULDER 782.1 Rash & Other Nonspec Skin Eruption 720.0 Spondylitis Ankylosing 714.0 Rheumatoid Arthritis V58.69 Medications Senior Living (Current) Use Encounter Office Visit 04/27/2014 10:00a Rheumatology Zsofia 720.0 Spondylitis [facility] JANETT Quintana Ankylosing 714.0 Rheumatoid Arthritis V58.69 Medications [facility] Living (Current) Use Encounter Office Visit 09/29/2013 3:30p Rheumatology Alyxofia 720.0 Spondylitis [facility] JANETT Quintana Ankylosing 714.0 Rheumatoid Arthritis V58.69 Medications Door Fitter (Current) Use Encounter Office Visit 07/05/2013 2:30p Rheumatology Zsofia 720.0 Spondylitis [facility] Mariano, FNP Ankylosing 714.0 Rheumatoid Arthritis V58.69 Medications [facility] (Current) Use Encounter Office Visit 04/07/2013 3:40p Rheumatology Zsofia 720.0 Spondylitis [facility] JANETT Quintana Ankylosing 714.0 Rheumatoid Arthritis V58.69 Medications [facility] Living (Current) Use Encounter Office Visit 12/30/2012 3:40p Rheumatology Zsofia 720.0 Spondylitis [facility] Mariano, FNP Ankylosing 714.0 Rheumatoid Arthritis V58.69 Medications Door Fitter (Current) Use Encounter Office Visit 09/16/2012 2:40p Rheumatology Zsofia 720.0 Spondylitis [facility] JANETT Quintana Ankylosing V58.69 Medications [facility] Living (Current) Use Encounter Office Visit 04/01/2012 3:00p Rheumatology Luis Wooten 720.0 Spondylitis [facility] [place] Ankylosing V58.69 Medications Door Fitter (Current) Use Encounter 786.2 Cough Office Visit 01/08/2012 1:40p Rheumatology Services Luis Wooten M.D. 786.2 Cough Of [facility] 720.0 Spondylitis Ankylosing V58.69 Medications Door Fitter (Current) Use Encounter 782.1 Rash & Other Nonspec Skin Eruption Office Visit 12/25/2011 3:00p Rheumatology Luis Wooten 720.0 Spondylitis Services Of Haul Driver M.D. Ankylosing V58.69 Medications Door Fitter (Current) Use Encounter 462 Pharyngitis Acute Office Visit 09/18/2011 3:00p Rheumatology Luis Wooten 720.0 Spondylitis Services Of Haul Driver M.D. Ankylosing V58.69 Medications Senior Living (Current) Use Encounter Office Visit 06/12/2011 2:20p Rheumatology Luis Wooten 720.0 Spondylitis Services Of Haul Driver M.D. Ankylosing V58.69 Medications Door Fitter (Current) Use Encounter Office Visit 01/23/2011 1:00p Rheumatology Luis Wooten 720.0 Spondylitis Services Of Haul Driver M.D. Ankylosing V58.69 Medications Senior Living (Current) Use Encounter Office Visit 11/14/2010 2:40p Rheumatology Luis Wooten 720.0 Spondylitis Services Of Haul Driver M.D. Ankylosing V58.69 Medications Door Fitter (Current) Use Encounter 788.64 Urinary Hesitancy Office Visit 09/19/2010 1:00p Rheumatology Luis Wooten 720.0 Spondylitis Services Of Haul Driver M.D. Ankylosing V58.69 Medications Door Fitter (Current) Use Encounter Office Visit 08/06/2010 4:00p Rheumatology Luis Wooten 720.0 Spondylitis Services Of Haul Driver M.D. Ankylosing V58.69 Medications Senior Living (Current) Use Encounter Office Visit 07/23/2010 3:20p Rheumatology Luis Wooten 720.0 Spondylitis Services Of Haul Driver M.D. Ankylosing V58.69 Medications Senior Living (Current) Use Encounter Plan of Treatment Future Appointment(s):06/15/2018 11:00 am - Martina Bautista MD at [facility]06/10/2018 12:00 pm - Martina Bautista MD at [facility]06/01/2018 - Martina Bautista MDN63.20 Unspecified lump in the left breast, unspecified [id number] Malignant neoplasm of unspecified site of left female breastReferral:Giorgi Vann MD, Radiation OncologyFollow up: after OR post op
--- OUTSIDE RECORDS SUMMARY | 2018-06-03 19:21 | XMS REPORT | Continuity of Care Document ---
:1955 External Reference #:[id number] Author Name VaishnaviGilma aguilar Care Team Providers Name Role Phone Tia Hutchinson MD Primary Care Physician Unavailable Payers Type Date Identification Numbers Payment Provider Subscriber Effective: Policy Number: [id number] BS Xavier Perkins 2013 PayID: [id number] Andrés [id number] MELVIN Crawford [id number] Effective: 2012 Policy Number: [id number] BS Xavier Duncann Expires: 2013 PayID: [id number] Andrés [id number] MELVIN Crawford [id number] Effective: 2012 Policy Number: [id number] BS Xavier Perkins Expires: 2012 PayID: [id number] Andrés [id number] MELVIN Crawford [id number] Advance Directives Description No Information Available Problems Date Description Provider Status Onset: 01/08/2012 Cough Luis Wooten M.D. Active Onset: 01/08/2012 Ankylosing spondylitis Luis Wooten M.D. 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 Active Encounter [...] Never Smoked A Pipe Smoking Status Reviewed: 05/20/18 Never Smoked A Pipe Smokeless Tobacco Never [...] Auto-Injec L directed Mariano, t as needed. 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 Celebrex Active [...] tab by Johana Balderrama s mouth NATHAN Haley three times a day Prednisone Hx Tablets 5mg 70tabs one by 357.9 Luis 015 - mouth x5 Je MGrahamDGraham days 015 Benadryl Hx Capsules 25mg 30caps take 2 Zsofia Allergy 015 - tabs q6h Mariano, prn CONSOLIDATION ACCOUNTANT 015 allergic reaction Simponi Hx Soln 50mg/0.5ML 1units Inject 50 720.0 Zsofia 014 - Prefill mg under Mariano, Syringe the skin CONSOLIDATION ACCOUNTANT 015 monthly. V58.69 Cefprozil 04/01/2012 - Hx [...] Hx Tablets 400mg 30tabs 1 po tid [place] 09/16/2012 Modesta Wooten Levaquin 08/19/2010 - Hx Tablets 250mg 10tabs 1 qd Luis 09/09/2010 Modesta Wooten Simponi 08/13/2010 - Hx Solution 50mg/0. 12units sc q month Zsofia 04/03/2014 5ML Mariano, CONSOLIDATION ACCOUNTANT Prednisone 08/06/2010 - Hx Tablets 5mg 35tabs 2 po qd and Luis 09/18/2011 reduce as nilda Wooten M.D. Plaquenil 07/23/2010 - Hx Tablets 200mg 60tabs 2 po qd [place] 12/30/2012 Modesta Wooten Humira 07/23/2010 - Hx [...] Available Vital Signs Date Vital Result Comment 05/20/2018 10:24am Height 65 inches 5'5" Weight [...] Date Facility Test Result H/L Range Note CBC Auto Diff 12/28/2014 [facility] White Blood 5.8 10^3/uL N 4.8-10.[address] [place] [address] [phone] Red Blood Count 3.75 10^6/uL Low 4.0-5.4 [...] % 0.1 N Comp Metabolic Panel 12/28/2014 [facility] Sodium 135 mmol/L N 133-[address] [place] [address] [phone] Potassium 4.7 mmol/L N 3.5-5.0 Chloride 100 [...] 61.3 N >60 Egfr 78.8 N >60 1 Urinalysis Profile 12/28/2014 [facility] Urine Color Yellow N [address] [place] [address] [phone] Urine Appearance Clear N Urine Specific [place] 1.018 N 1.010-1.030 Urine pH 5.0 N 5-9 Urine Urobilinogen Negative N Negative Urine Ketones Negative N Negative Urine Protein Negative N Negative Urine Leukocytes Negative N Negative Urine Blood Negative N Negative Urine Nitrite Negative N Negative Urine Bilirubin Negative N Negative Urine Glucose Negative N Negative Laboratory test 12/28/2014 [facility] Creatinine Random 107.09 mg/dL N finding [address] [place] [address] [phone] Total Protein Random Urine 7 mg/dL N Sm ([place]) IgG Antibody <0.2 U N 2 U1 TELEPHONE LINEWORKER/SNRNP Igg Autoabs <0.2 U N 3 Ssa/SSB Abs Igg 12/28/2014 [facility] SS-A/Ro Antibody <0.2 U N 4 [address] [place] [address] [phone] SS-B/La Antibody <0.2 U N 5 Laboratory test 12/28/2014 [facility] Complement C1q 18 mg/dL N 12 - 22 6 finding [address] [place] [address] [phone] Complement C3 124 mg/dL N 75 - 175 7 Complement C4 29 mg/dL N 14 - 40 8 Cytoplasmic 12/28/2014 [facility] C-Anca Negative N Negative Neutrophilic AB [address] [place] [address] [phone] P-Anca Negative N Negative 9 Laboratory test 12/28/2014 [facility] Anti Dna Negative N Negative finding [address] ([place] [address] Stranded Dna) [phone] Mellissa (Antinuclear Antibodies) Negative N Negative Laboratory test 11/15/2014 [facility] C Reactive 23.64 mg/L High < 5.[address] [place] [address] [phone] Erythrocyte Sed Rate 10 mm/Hr N 0-30 Cyclic Citrullinated Pep Igg <15.6 U N 11 Rheumatoid Factor <15 IU/mL N <15 12 Comp Metabolic Panel 11/15/2014 [facility] Sodium 135 mmol/L N 133-[address] [place] [address] [phone] Potassium 5.4 mmol/L High 3.5-5.0 Chloride 102 [...] 40.2 N >60 Egfr 51.7 N >60 13 CBC Auto 11/15/2014 [facility] White Blood 18.7 10^3/uL High 4.8-10.[address] [place] [address] [phone] Red Blood Count 4.01 10^6/uL N 4.0-5.4 [...] Blood Cells % 0 N Creatinine 11/07/2014 [facility] Creatinine 0.74 mg/dL N 0.51- 0.[address] [place] [address] [phone] Egfr Non- 79.8 N >60 Egfr 102.6 N >60 14 Protein Electrophoresis 10/02/2014 Total Protein(Pep) 7.2 g/dL N 6.3 - 7.9 Albumin 3.6 g/dL N 3.4-4.7 Alpha-1 Globulin 0.3 g/dL N 0.1-0.3 Alpha-2 Globulin 1.2 g/dL Abnormal 0.6-1.0 Beta Globulin 1.0 g/dL N 0.7-1.2 Gamma Globulin 1.1 g/dL N 0.6-1.6 Albumin/Globulin Ratio 0.99 N Impression See Comment N 15 Laboratory test finding 10/02/2014 Lyme Disease Serology Negative N Negative 16 Ssa/SSB Abs Igg 10/02/2014 SS-A/Ro Antibody <0.2 U N 17 SS-B/La Antibody <0.2 U N 18 Laboratory test 09/10/2014 [facility] TSH (Thyroid 1.37 ?IU/mL N 0.34-5.[address] Stim Horm) [place] [address] [phone] Free T4 (Free Thyroxine) 0.72 ng/mL N 0.61-1.12 Vitamin B12 330 pg/mL N 180-914 19 CBC Auto Diff 09/10/2014 [facility] White Blood 6.4 10^3/uL N 4.8-10.[address] [place] [address] [phone] Red Blood Count 4.02 10^6/uL N 4.0-5.4 [...] % 0.1 N Comp Metabolic Panel 09/10/2014 [facility] Sodium 134 mmol/L N 133-[address] [place] [address] [phone] Potassium 4.4 mmol/L N 3.5-5.0 Chloride 100 [...] 64.5 N >60 Egfr 82.9 N >60 20 Laboratory test 09/10/2014 [facility] Mellissa (Anti-Nuclear Negative N Negative finding [address] AB) [place] [address] [phone] Isabel Screen Negative N Negative 21 Cytoplasmic 09/10/2014 [facility] C-Anca Negative N Negative Neutrophilic AB [address] [place] [address] [phone] P-Anca Negative N Negative 22 Laboratory test 09/10/2014 [facility] Erythrocyte Sed 6 mm/Hr N 0-[address] [place] [address] [phone] C Reactive Protein 1.07 mg/L N < 5.00 23 Laboratory test finding 07/04/2014 Mellissa (Anti-Nuclear AB) Negative N Negative Screen Histone Antibodies <0.5 U N 24 Urinalysis Profile 07/04/2014 Urine Color Yellow N Urine Appearance Cloudy N Urine Specific [place] 1.025 N 1.010-1.030 Urine pH 5.0 N [...] 55.3 N >60 Egfr 71.1 N >60 25 Laboratory test finding 07/04/2014 CRP High Sensitivity 1.21 mg/L N 26 Erythrocyte Sed Rate 4 mm/Hr N 0-30 CBC Auto Diff 04/06/2014 [facility] White Blood 8.4 10^3/uL N 4.8-10.[address] [place] [address] [phone] Red Blood Count 4.07 10^6/uL N 4.0-5.4 [...] % 0 N Comp Metabolic Panel 04/06/2014 [facility] Sodium 137 mmol/L N 133-[address] [place] [address] [phone] Potassium 4.7 mmol/L N 3.5-5.0 Chloride 100 [...] 55.9 N >60 Egfr 71.9 N >60 27 Laboratory test 04/06/2014 [facility] C Reactive 11.13 mg/L High < 5.00 [address] [place] [address] [phone] Erythrocyte Sed Rate 9 mm/Hr N 0-30 [...] Reactive Protein 1.07 mg/L N < 5.00 29 Comp Metabolic Panel 09/28/2013 Sodium 136 mmol/L [...] 66.4 N >60 Egfr 85.4 N >60 30 Manual Differential 09/28/2013 Neutrophil % 41 % N 38-83 Lymphocytes % 49 % High 25-47 Monocytes % 9 % N 0-13 Basophil % 1 % N 0-2 Laboratory test 09/28/2013 Pathologist Review (SEE NOTE) N 31 finding Basic Metabolic 06/29/2013 [facility] Sodium 135 mmol/L 133- [address] [place] [address] [phone] Potassium 4.1 mmol/L 3.7-5.6 Chloride 100 mmol/L Low 101-111 Co2 Carbon Dioxide 28 mmol/L 22-32 Anion Gap 7 mmol/L 2-11 Glucose 86 mg/dL 70-100 Blood Urea Nitrogen 24 mg/dL 6-24 Creatinine 0.72 mg/dL 0.51-0.95 BUN/Creatinine Ratio 33.3 High 8-20 Calcium 9.1 mg/dL 8.6-10.3 Egfr Non- 82.9 >60 Egfr 106.6 >60 32 Laboratory test finding 06/29/2013 [facility] Albumin 4.2 g/dL 3.2-5.[address] [place] [address] [phone] Total Bilirubin 0.70 mg/dL 0.2-1.0 Direct Bilirubin 0.20 mg/dL High 0.03-0.18 Alkaline Phosphatase 40 U/L 34-104 Alt 10 U/L 7-52 Ast 18 U/L 13-39 C Reactive Protein 1.89 mg/L 33 CBC With 06/29/2013 [facility] White Blood 6.4 10^3/uL 4.8- 10.8 Manual Diff [address] [place] [address] [phone] Red Blood Count 4.09 10^6/uL 4.0-5.4 Hemoglobin [...] RBC Morphology Normal Normal Laboratory test 06/29/2013 [facility] Erythrocyte Sed 4 mm/Hr 0-[address] [place] [address] [phone] TSH (Thyroid Stimulating Horm) 1.15 IU/mL 0.34-5.60 [...] Egfr Non- 56.7 >60 Egfr 73.0 >60 34 Laboratory test finding 03/25/2013 Albumin 4.1 g/dL 3.6-5.4 Total Bilirubin 0.7 mg/dL 0.4-1.5 Direct Bilirubin 0.1 mg/dL 0.1-0.5 Alkaline Phosphatase 37 U/L 30-110 Alt 16 U/L 14-54 Ast 20 U/L 12-42 Erythrocyte Sed Rate 4 mm/Hr 0-30 Basic Metabolic Panel 12/30/2012 [facility] Sodium 134 mmol/L 133-145 [address] [place], [place] [id number] [phone] Potassium 4.2 mmol/L 3.5-5.0 Chloride 103 mmol/L 101-111 Co2 Carbon Dioxide 28.0 mmol/L 22-32 Anion Gap 3.0 mmol/L 2-11 Glucose 88 mg/dL 70-100 Blood Urea Nitrogen 17 mg/dL 6-24 Creatinine 0.90 mg/dL 0.50-1.40 BUN/Creatinine Ratio 18.9 8-20 Calcium 9.1 mg/dL 8.1-9.9 Egfr Non- 64.1 >60 Egfr 82.4 >60 35 Liver Function 12/30/2012 [facility] Total Protein 5.9 g/dL Low 6.2-8.[address] [place] [address] [phone] Albumin 3.6 g/dL 3.6-5.4 Globulin 2.3 g/dL 2-4 Albumin/Globulin Ratio 1.6 1-3 Total Bilirubin 0.7 mg/dL 0.4-1.5 Direct Bilirubin 0.1 mg/dL 0.1-0.5 Indirect Bilirubin 0.6 mg/dL 0.3-1.0 Alkaline Phosphatase 35 U/L 30-110 Alt 15 U/L 14-54 Ast 18 U/L 12-42 Laboratory test 12/30/2012 [facility] C Reactive 0.8 mg/dL High Less than finding [address] Protein 0.5 [place] [address] [phone] CBC With Manual 12/30/2012 [facility] White Blood 4.8 4.8- 10.[address] Count 10^3/[place] [address] [phone] Red Blood Count 4.05 10^6/uL 4.0-5.4 Hemoglobin [...] RBC Morphology Normal Normal Laboratory test 12/30/2012 [facility] Erythrocyte Sed 3 mm/Hr 0-[address] [place] [address] [phone] CBC With Manual 09/14/2012 [facility] White Blood 6.1 4.8- 10.[address] Count 10^3/[place] [address] [phone] Red Blood Count 4.14 10^6/uL 4.0-5.4 Hemoglobin [...] RBC Morphology Normal Normal Laboratory test 09/14/2012 [facility] C Reactive 0.5 mg/dL Less than finding [address] Protein 0.5 [place] [address] [phone] Erythrocyte Sed Rate 7 mm/Hr 0-30 Liver Function 09/14/2012 [facility] Total Protein 5.9 g/dL Low 6.2-8.[address] [place] [address] [phone] Albumin 3.8 g/dL 3.6-5.4 Globulin 2.1 g/dL 2-4 Albumin/Globulin Ratio 1.8 1-3 Total Bilirubin 0.7 mg/dL 0.4-1.5 Direct Bilirubin 0.2 mg/dL 0.1-0.5 Indirect Bilirubin 0.5 mg/dL 0.3-1.0 Alkaline Phosphatase 34 U/L 30-110 Alt 16 U/L 14-54 Ast 20 U/L 12-42 Basic Metabolic Panel 09/14/2012 [facility] Sodium 134 mmol/L 133-[address] [place] [address] [phone] Potassium 4.8 mmol/L 3.5-5.0 Chloride 100 mmol/L Low 101-111 Co2 Carbon Dioxide 26.0 mmol/L 22-32 Anion Gap 8.0 mmol/L 2-11 Glucose 106 mg/dL High 70-100 Blood Urea Nitrogen 23 mg/dL 6-24 Creatinine 0.80 mg/dL 0.50-1.40 BUN/Creatinine Ratio 28.8 High 8-20 Calcium 9.3 mg/dL 8.1-9.9 Egfr Non- 73.4 >60 Egfr 94.4 >60 36 CBC With 06/17/2012 [facility] White Blood 8.1 10^3/uL 4.8- 10.8 Manual Diff [address] [place] [address] [phone] Red Blood Count 3.94 10^6/uL Low 4.0-5.4 [...] RBC Morphology Normal Normal Laboratory test 06/17/2012 [facility] Erythrocyte Sed 10 mm/Hr 0-[address] [place] [address] [phone] Laboratory test 06/17/2012 [facility] C Reactive 1.5 mg/dL High Less finding [address] Protein than 0.5 [place] [address] [phone] Comp Metabolic 06/17/2012 [facility] Sodium 135 133-[address] mmol/[place] [address] [phone] Potassium 4.8 mmol/L 3.5-5.0 Chloride 102 mmol/L [...] Egfr Non- 64.3 >60 Egfr 82.7 >60 37 Basic Metabolic Panel 02/17/2012 [facility] Sodium 135 mmol/L 133-[address] [place] [address] [phone] Potassium 4.2 mmol/L 3.5-5.0 Chloride 101 mmol/L 101-111 Co2 Carbon Dioxide 26.0 mmol/L 22-32 Anion Gap 8.0 mmol/L 2-11 Glucose 86 mg/dL 70-100 Blood Urea Nitrogen 17 mg/dL 6-24 Creatinine 0.70 mg/dL 0.50-1.40 BUN/Creatinine Ratio 24.3 High 8-20 Calcium 9.1 mg/dL 8.1-9.9 Egfr Non- 85.9 >60 Egfr 110.5 >60 38 Liver Function 02/17/2012 [facility] Total Protein 5.7 GM/DL Low 6.2-8.[address] [place] [address] [phone] Albumin 3.6 GM/DL 3.6-5.4 Globulin 2.1 GM/DL 2-4 Albumin/Globulin Ratio 1.7 1-3 Total Bilirubin 0.4 mg/dL 0.1-1.0 39 Direct Bilirubin 0.1 mg/dL 0.1-0.5 Indirect Bilirubin 0.3 mg/dL 0.3-1.0 Alkaline Phosphatase 51 U/L 30-110 Alt 17 U/L 14-54 Ast 18 U/L 12-42 Laboratory test 02/17/2012 [facility] C Reactive 4.3 mg/dL High Less Than finding [address] Protein 0.5 [place] [address] [phone] CBC With Manual 02/17/2012 [facility] White Blood 8.7 4.8- 10.[address] Count 10^3/uL [place] [address] [phone] Red Blood Count 4.15 10^6/uL 4.0-5.4 Hemoglobin [...] RBC Morphology Normal Normal Laboratory test 02/17/2012 [facility] Erythrocyte Sed 9 MM/HR 0-[address] [place] [address] [phone] Culture Throat 02/17/2012 [facility] Throat Culture (SEE NOTE) [address] [place] [address] [phone] Basic Metabolic 12/23/2011 [facility] Sodium 140 mmol/L 135- [address] [place] [address] [phone] Potassium 4.8 mmol/L 3.5-5.0 Chloride 106 mmol/L 101-111 Co2 (Carbon Dioxide) 29.0 mmol/L 22-32 Anion Gap 5.0 mmol/L 2-11 41 Glucose 90 mg/dL 70-100 BUN 11 mg/dL 6-24 Creatinine 0.8 mg/dL 0.50-1.40 One Over Creatinine 1.25 BUN/Creatinine Ratio 13.8 8-20 Calcium 9.4 mg/dL 8.1-9.9 eGFR Non- 73.7 > 60 eGFR 94.7 > 60 42 Liver Function 12/23/2011 [facility] Total Protein 6.2 GM/DL 6.2-8.[address] [place] [address] [phone] Albumin 3.6 GM/DL 3.6-5.4 Globulin 2.6 GM/DL 2-4 Albumin/Globulin Ratio 1.4 1-3 Bilirubin Total 0.6 mg/dL 0.4-1.5 43 Bilirubin Direct 0.1 mg/dL 0.1-0.5 Indirect Bilirubin 0.5 mg/dL 0.3-1.0 44 Alkaline Phosphatase 78 U/L 30-110 Alt (SGPT) 27 U/L 14-54 Ast (Sgot) 31 U/L 12-42 Lipid Profile 12/23/2011 [facility] Triglyceride 250 mg/dL High 40-200 (Trig/Chol/HDL) [address] [place] [address] [phone] Cholesterol 197 mg/dL Less Than 200 45 High Density Lipoprotein 53 mg/dL 40-60 46 Cholesterol/HDL Ratio 3.72 AVERAGE 1-4.44 Low Density Lipoprotein 94 mg/dL Less Than 100 47 Laboratory test 12/23/2011 [facility] Erythrocyte Sed 15 MM/HR 0-[address] [place] [address] [phone] CBC With Manual 12/23/2011 [facility] White Blood 5.2 CUMM 4.8-10.[address] [place] [address] [phone] Red Cell Count 4.09 CUMM Low 4.2-5.4 [...] 0-2 RBC Morphology NORMAL Laboratory test 12/23/2011 [facility] C Reactive 8.0 mg/dL High Less Than finding [address] Protein 0.5 [place] [address] [phone] CBC Auto Diff 09/16/2011 [facility] White Blood 5.1 CUMM 4.8- 10.[address] [place] [address] [phone] Red Cell Count 4.00 CUMM Low 4.2-5.4 [...] Basophils 0.1 0-0.2 Basic Metabolic Panel 09/16/2011 [facility] Sodium 137 mmol/L 135-[address] [place] [address] [phone] Potassium 4.9 mmol/L 3.5-5.0 Chloride 103 mmol/L 101-111 Co2 (Carbon Dioxide) 29.0 mmol/L 22-32 Anion Gap 5.0 mmol/L 2-11 48 Glucose 121 mg/dL High 70-100 BUN 14 mg/dL 6-24 Creatinine 0.8 mg/dL 0.50-1.40 One Over Creatinine 1.25 BUN/Creatinine Ratio 17.5 8-20 Calcium 9.6 mg/dL 8.1-9.9 eGFR Non- 73.7 > 60 eGFR 94.7 > 60 49 Liver Function 09/16/2011 [facility] Total Protein 6.1 GM/DL Low 6.2-8.[address] [place] [address] [phone] Albumin 3.7 GM/DL 3.6-5.4 Globulin 2.4 GM/DL 2-4 Albumin/Globulin Ratio 1.5 1-3 Bilirubin Total 0.6 mg/dL 0.4-1.5 50 Bilirubin Direct 0.0 mg/dL Low 0.1-0.5 Indirect Bilirubin (SEE NOTE) mg/dL 0.3-1.0 51 Alkaline Phosphatase 44 U/L 30-110 Alt (SGPT) 17 U/L 14-54 Ast (Sgot) 25 U/L 12-42 Laboratory test 09/16/2011 [facility] C Reactive < 0.5 mg/dL Less Than finding [address] Protein 0.5 [place] [address] [phone] Erythrocyte Sed Rate 7 MM/HR 0-30 Laboratory test 02/27/2011 [facility] C Reactive < 0.5 Less Than [address] Protein mg/dL 0.5 [place] [address] [phone] CBC With Manual 02/27/2011 [facility] White Blood 8.1 CUMM 4.8-10.[address] [place] [address] [phone] Red Cell Count 4.30 CUMM 4.2-5.4 Hemoglobin [...] 5.5 RBC Morphology NORMAL Laboratory test 02/27/2011 [facility] Erythrocyte Sed 11 MM/HR 0-[address] [place] [address] [phone] Liver Function 02/27/2011 [facility] Total Protein 6.8 GM/DL 6.2-8.[address] [place] [address] [phone] Albumin 4.4 GM/DL 3.6-5.4 Globulin 2.4 GM/DL 2-4 Albumin/Globulin Ratio 1.8 1-3 Bilirubin Total 0.4 mg/dL 0.4-1.5 53 Bilirubin Direct 0.1 mg/dL 0.1-0.5 Indirect Bilirubin 0.3 mg/dL 0.3-1.0 54 Alkaline Phosphatase 43 U/L 30-110 Alt (SGPT) 16 U/L 14-54 Ast (Sgot) 21 U/L 12-42 Basic Metabolic Panel 02/27/2011 [facility] Sodium 137 mmol/L 135-[address] [place] [address] [phone] Potassium 4.2 mmol/L 3.5-5.0 Chloride 104 mmol/L 101-111 Co2 (Carbon Dioxide) 26.0 mmol/L 22-32 Anion Gap 7.0 mmol/L 2-11 55 Glucose 90 mg/dL 70-100 BUN 22 mg/dL 6-24 Creatinine 0.7 mg/dL 0.50-1.40 One Over Creatinine 1.42 BUN/Creatinine Ratio 31.4 High 8-20 Calcium 9.7 mg/dL 8.1-9.9 eGFR Non- 86.2 > 60 eGFR 110.9 > 60 56 Type And Screen 02/27/2011 [facility] Patient Blood B POSITIVE (Pre-Adm) [address] [place] [address] [phone] Antibody Screen NEGATIVE Specimen Discard Date 03/13/2011 57 1 Because ethnic data is not always readily [...] 15-29 5 Kidney failure <15 (or dialysis) 2 REFERENCE VALUE <1.0 (Negative) Test Performed by: [place] [address] Psychiatry Adult Physician: Darrell Ruiz II, M.D., Ph.D. 3 REFERENCE VALUE <1.0 (Negative) Test Performed by: [place] [address] Psychiatry Adult Physician: Darrell Ruiz II, M.D., Ph.D. 4 REFERENCE VALUE <1.0 (Negative) 5 REFERENCE VALUE <1.0 (Negative) Test Performed by: [place] [address] Psychiatry Adult Physician: Darrell Ruiz II, M.D., Ph.D. 6 ADDITIONAL INFORMATION Laboratory developed test Test Performed by: [place] [address] Psychiatry Adult Physician: Darrell Ruiz II, M.D., Ph.D. 7 Test Performed by: [place] [address] Psychiatry Adult Physician: Darrell Ruiz II, M.D., Ph.D. 8 Test Performed by: [place] [address] Psychiatry Adult Physician: Darrell Ruiz II, M.D., Ph.D. 9 Negative for cANCA and pANCA patterns by immunofluorescence. Test Performed by: [place] [address] Psychiatry Adult Physician: Darrell Ruiz II, M.D., Ph.D. 10 Acute inflammation: >10.00 11 REFERENCE VALUE <20.0 (Negative) Test Performed by: [place] [address] Psychiatry Adult Physician: Darrell Ruiz II, M.D., Ph.D. 12 Test Performed by: [place] [address] Psychiatry Adult Physician: Darrell Ruiz II, M.D., Ph.D. 13 Because ethnic data is not always readily [...] 15-29 5 Kidney failure <15 (or dialysis) 14 Because ethnic data is not always [...] 5 Kidney failure <15 (or dialysis) 15 RESULT: No apparent monoclonal protein on serum electrophoresis. Test Performed by: [place] [address] Psychiatry Adult Physician: Darrell Ruiz II, M.D., Ph.D. 16 Serologic response to B. burgdorferi infection is not detected, but cannot rule out early infection during which low or undetectable antibody levels to B. burgdorferi may be present. If clinically indicated, a new serum specimen should be submitted in 7-14 days. Test Performed by: [place] [address] Psychiatry Adult Physician: Darrell Ruiz II, M.D., Ph.D. 17 REFERENCE VALUE <1.0 (Negative) 18 REFERENCE VALUE <1.0 (Negative) Test Performed by: [place] [address] Psychiatry Adult Physician: Darrell Ruiz II, M.D., Ph.D. 19 Normal Range 180 to 914 Indeterminate Range 145 to 180 Deficient Range <145 20 Because ethnic data is not always readily [...] 15-29 5 Kidney failure <15 (or dialysis) 21 The above ISABEL screen is designed for the detection of antibodies to extractable nuclear antigen (ISABEL) in human serum. It is a combination test for the detection of antibodies to TELEPHONE LINEWORKER, Sm, SS-A (Ro), and SS-B (La) nuclear antigens. 22 Negative for cANCA and pANCA patterns by immunofluorescence. Test Performed by: [place] [address] Psychiatry Adult Physician: Darrell Ruiz II, M.D., Ph.D. 23 Acute inflammation: >10.00 24 REFERENCE VALUE <1.0 (Negative) Test Performed by: [place] [address] Psychiatry Adult Physician: Darrell G. Morice, II, M.D., Ph.D. 25 Because ethnic data is not always readily [...] 15-29 5 Kidney failure <15 (or dialysis) 26 Low risk: <1.00 Average risk: 1.00-3.00 High risk: >3.00 27 Because ethnic data is not always readily [...] 15-29 5 Kidney failure <15 (or dialysis) 28 Acute inflammation: >10.00 29 Acute inflammation: >10.00 30 Because ethnic data is not always readily [...] 15-29 5 Kidney failure <15 (or dialysis) 31 CBC and smear reviewed. Inverted PMN/lymph ratio noted. No blasts seen. Reviewed by Gilma López MD 32 Because ethnic data is not always readily [...] 15-29 5 Kidney failure <15 (or dialysis) 33 Low risk: <1.0 mg/L Average risk: 1.0-3.0 mg/L High risk: >3.0 mg/L Acute inflammation: >10.0 mg/L 34 Because ethnic data is not always readily [...] 15-29 5 Kidney failure <15 (or dialysis) 35 Because ethnic data is not always [...] 5 Kidney failure <15 (or dialysis) 39 A metabolite of Naproxen, O-desmethylnaproxen, has been shown to interfere with the Jendrassik-Geoffrey method for measuring total bilirubin. Samples from patients who have taken Naproxen have shown spurious elevation in total bilirubin levels. 40 RUN DATE: 02/19/12 [facility] LAB LIVE PAGE 1 RUN TIME: [id number] [place] [id number] Specimen Inquiry Name: SOPHIE PERKINS : [address]: Tia Hutchinson MD Acct: [id number] Unit: [id number] AGE: 56 Location: [facility] Re02/17/12 SEX: F Status: REG REF SPEC: [id number] RYAN: 02/17/12-[address] [facility] [address]: Tia Hutchinson MD REQ: [id number] RECD: 02/17/12504 STATUS: LEANN URRUTIA DR: Je GORDON,Luis _ SOURCE: THROAT SPDESC: ORDERED: Throat Culture Procedure Result Verified Site Throat Culture Final 02/19/12- 1133 ML Organism 1 NORMAL OPAL Quantity 3+ Throat cultures are clinically indicated to detect the presence of group A strep, arcanobacterium and yeast. END OF REPORT * ML=Testing performed at Main Lab DEPARTMENT OF PATHOLOGY, [address] [place] [address] Reji Perales M.D. Director [facility] Permit #[id number] Anion gap measurement may be of limited value in the presence of any alkalosis, especially in a combined acid base disorder. . 42 Because ethnic data is not always readily [...] 15-29 5 Kidney failure <15 (or dialysis) 43 A metabolite of Naproxen, O-desmethylnaproxen, has been shown to interfere with the [place] method for measuring total bilirubin. Samples from patients who have taken Naproxen have shown spurious elevation in total bilirubin levels. 44 Please note updated reference range, effective 11/21/09 45 CHOLESTEROL INTERPRETATION: Desirable: Less than 200 MG/DL Borderline-High Risk: 200-239 MG/DL High-Risk: 240 MG/DL and over 46 HDL INTERPRETATION: Undesirable: High Risk: Less than 40 MG/DL Desirable: Low Risk: Greater than 60 MG/DL 47 LDL INTERPRETATION: Low Risk Optimal Level: LDL Less than 100 MG/DL Near or Above Optimal: LDL 100-129 MG/DL Borderline High Risk: LDL 130-159 MG/DL High Risk: LDL 160-189 MG/DL Very High Risk: LDL Greater than 189 MG/DL 48 Anion gap measurement may be of limited value in the presence of any alkalosis, especially in a combined acid base disorder. . 49 Because ethnic data is not always readily [...] 15-29 5 Kidney failure <15 (or dialysis) 50 A metabolite of Naproxen, O-desmethylnaproxen, has been shown to interfere with the [place] method for measuring total bilirubin. Samples from patients who have taken Naproxen have shown spurious elevation in total bilirubin levels. 51 UNABLE TO CALCULATE IND.BILI D.BILI IS <0.1 Please note updated reference range, effective 11/21/09 52 SDS 03/06 53 A metabolite of Naproxen, O-desmethylnaproxen, has been shown to interfere with the [place] method for measuring total bilirubin. Samples from patients who have taken Naproxen have shown spurious elevation in total bilirubin levels. 54 Please note updated reference range, effective 11/21/09 55 Anion gap measurement may be of limited value in the presence of any alkalosis, especially in a combined acid base disorder. . 56 Because ethnic data is not always readily [...] 15-29 5 Kidney failure <15 (or dialysis) 57 PREADMISSION TESTING SAMPLES FOR BLOOD BANK WILL [...] SURGERY DATE. Procedures Date Code Description Status 05/04/2018 [id number] Mammogram Completed 04/20/2018 [id number] Mammogram Completed 04/14/2017 [id number] Mammogram Completed 11/16/2014 05636 Nerve Conduction 03-04 Studies Completed Encounters Type Date Location Provider Dx Diagnosis Office Visit 05/11/2018 [facility] Cro[facility] R92.8 Oth abn and 10:00a Of Connie Bautista MD inconclusive findings on dx imaging of breast Office Visit 05/16/2015 [facility] H62.43 Otitis externa in 11:00a [facility] 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 Neuritis & Radiculitis Unspec 323.52 Myelitis Following Immunization Procedures Office Visit 10/02/2014 1:00p Joann Jarvis 357.9 Neuropathy Services Of Connie Hope M.D. 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 729.2 Neuralgia Neuritis & Radiculitis Unspec Office Visit 06/29/2014 10:30a Rheumatology Ever Quintana 995.3 Allergy Unspec [facility] JANETT 782.1 Rash & Other Nonspec Skin Eruption 720.0 Spondylitis Ankylosing 714.0 Rheumatoid Arthritis V58.69 Medications Prison (Current) Use Encounter Office Visit 04/27/2014 10:00a Rheumatology Alyxofia 720.0 Spondylitis [facility] JANETT Quintana Ankylosing 714.0 Rheumatoid Arthritis V58.69 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 Office Visit 09/29/2013 3:30p Rheumatology Alyxofia 720.0 Spondylitis [facility] JANETT Quintana Ankylosing 714.0 Rheumatoid Arthritis V58.69 Medications Prison (Current) Use Encounter Office Visit 07/05/2013 2:30p Rheumatology Alyxofia 720.0 Spondylitis [facility] JANETT Quintana Ankylosing 714.0 Rheumatoid Arthritis V58.69 Medications Prison (Current) Use Encounter Office Visit 04/07/2013 3:40p Rheumatology Zsofia 720.0 Spondylitis [facility] JANETT Quintana Ankylosing 714.0 Rheumatoid Arthritis V58.69 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 786.2 Cough Of Inspector Missile 720.0 Spondylitis Ankylosing V58.69 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 782.1 Rash & Other Nonspec Skin Eruption Office Visit 12/25/2011 3:00p Rheumatology Luis Wooten, 720.0 Spondylitis Services Of Inspector Missile M.D. Ankylosing V58.69 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 462 Pharyngitis Acute Office Visit 09/18/2011 3:00p Rheumatology Luis Wooten 720.0 Spondylitis Services Of Inspector Missile M.D. Ankylosing V58.69 Medications Prison (Current) Use Encounter Office Visit 06/12/2011 2:20p Rheumatology Luis Wooten 720.0 Spondylitis Services Of Inspector Missile M.D. Ankylosing V58.69 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 Office Visit 01/23/2011 1:00p Rheumatology Luis Wooten, 720.0 Spondylitis Services Of Inspector Missile M.D. Ankylosing V58.69 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 Office Visit 11/14/2010 2:40p Rheumatology Luis Wooten, 720.0 Spondylitis Services Of Inspector Missile M.D. Ankylosing V58.69 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 788.64 Urinary Hesitancy Office Visit 09/19/2010 1:00p Rheumatology Luis Wooten 720.0 Spondylitis Services Of Inspector Missile M.D. Ankylosing V58.69 Medications Prison (Current) Use Encounter Office Visit 08/06/2010 4:00p Rheumatology Luis Wooten 720.0 Spondylitis Services Of Inspector Missile M.D. Ankylosing V58.69 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 Office Visit 07/23/2010 3:20p Rheumatology Luis Wooten 720.0 Spondylitis Services Of Inspector Missile M.D. Ankylosing V58.69 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 Plan of Treatment Future Appointment(s):06/01/2018 11:30 am - Martina Bautista MD at [facility]05/27/2018 10:00 am - Martina Bautista MD at [facility]05/20/2018 - Ameya Negrete, PAR92.8 Other abnormal and inconclusive findings on diagnostic uszzuV88.818 Encounter for other preprocedural examination
--- OUTSIDE RECORDS SUMMARY | 2018-06-03 19:21 | XMS REPORT | Continuity of Care Document ---
:1955 External Reference #:[id number] Author Name VaishnaviGilma aguilar Care Team Providers Name Role Phone Tia Hutchinson MD Primary Care Physician Unavailable Payers Type Date Identification Numbers Payment Provider Subscriber Effective: Policy Number: [id number] BS Xavier Perkins 2013 PayID: [id number] Andrés [id number] MELVIN Crawford [id number] Effective: 2012 Policy Number: [id number] BS Xavier Duncann Expires: 2013 PayID: [id number] Andrés [id number] MELVIN Crawford [id number] Effective: 2012 Policy Number: [id number] BS Xavier Perkins Expires: 2012 PayID: [id number] Andrés [id number] MELVIN Crawford [id number] Advance Directives Description No Information Available Problems Date Description Provider Status Onset: 01/08/2012 Cough Luis Wooten M.D. Active Onset: 01/08/2012 Ankylosing spondylitis Luis Wooten M.D. Active Onset: 01/08/2012 Medications Nursing Home (Current) Use Luis Wooten M.D. Active Encounter [...] Never Smoked A Pipe Smoking Status Reviewed: 05/11/18 Never Smoked A Pipe Smokeless Tobacco Never [...] Auto-Injec L directed Mariano, t as needed. 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 Celebrex Active [...] 30tabs 1 tab by Mick Balderrama mouth [place], daily M.D. 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 V58.69 Cefprozil 04/01/2012 - Hx [...] Hx Tablets 400mg 30tabs 1 po tid Sherman 09/16/2012 Modesta Wooten Levaquin 08/19/2010 - Hx Tablets 250mg 10tabs 1 qd Luis 09/09/2010 Modesta Wooten Simponi 08/13/2010 - Hx Solution 50mg/0. 12units sc q month Zsofia 04/03/2014 5ML Mariano, [employer]SEMBLER Prednisone 08/06/2010 - Hx Tablets 5mg 35tabs 2 po qd and Luis 09/18/2011 reduce as nilda Wooten M.D. Plaquenil 07/23/2010 - Hx Tablets 200mg 60tabs 2 po qd Sherman 12/30/2012 Modesta Wooten Humira 07/23/2010 - Hx [...] Available Vital Signs Date Vital Result Comment 05/11/2018 10:20am Height 65 inches 5'5" Weight [...] H/L Range Note CBC Auto Diff 12/28/2014 [facility] White Blood 5.8 10^3/uL N 4.8-10.[address] [place] [address] [phone] Red Blood Count 3.75 10^6/uL Low 4.0-5.4 [...] % 0.1 N Comp Metabolic Panel 12/28/2014 [facility] Sodium 135 mmol/L N 133-[address] [place] [address] [phone] Potassium 4.7 mmol/L N 3.5-5.0 Chloride 100 [...] 78.8 N >60 1 Urinalysis Profile 12/28/2014 [facility] Urine Color Yellow [place] [address] [place] [address] [phone] Urine Appearance Clear N Urine Specific [place] 1.018 N 1.010-1.030 Urine pH 5.0 N 5-9 Urine Urobilinogen Negative N Negative Urine Ketones Negative N Negative Urine Protein Negative N Negative Urine Leukocytes Negative N Negative Urine Blood Negative N Negative Urine Nitrite Negative N Negative Urine Bilirubin Negative N Negative Urine Glucose Negative N Negative Laboratory test 12/28/2014 [facility] Creatinine Random 107.09 mg/dL N finding [address] [place], [place] [id number] [phone] Total Protein Random Urine 7 mg/dL N Sm ([place]) IgG Antibody <0.2 U N 2 U1 RELATIONSHIP MANAGEMENT LEAD/SNRNP Igg Autoabs <0.2 U N 3 Ssa/SSB Abs Igg 12/28/2014 [facility] SS-A/Ro Antibody <0.2 U N [address] [place] [address] [phone] SS-B/La Antibody <0.2 U N 5 Laboratory test 12/28/2014 [facility] Complement C1q 18 mg/dL N 12 - [address] [place], [place] [id number] [phone] Complement C3 124 mg/dL N 75 - 175 7 Complement C4 29 mg/dL N 14 - 40 8 Cytoplasmic 12/28/2014 [facility] C-Anca Negative N Negative Neutrophilic AB [address] [place], [place] [id number] [phone] P-Anca Negative N Negative 9 Laboratory test 12/28/2014 [facility] Anti Dna Negative N Negative finding [address] ([place] [address] Stranded Dna) [phone] Mellissa (Antinuclear Antibodies) Negative N Negative Laboratory test 11/15/2014 [facility] C Reactive 23.64 mg/L High < 5.[address] [place] [address] [phone] Erythrocyte Sed Rate 10 mm/Hr N 0-30 Cyclic Citrullinated Pep Igg <15.6 U N 11 Rheumatoid Factor <15 IU/mL N <15 12 Comp Metabolic Panel 11/15/2014 [facility] Sodium 135 mmol/L N 133-[address] [place] [address] [phone] Potassium 5.4 mmol/L High 3.5-5.0 Chloride 102 [...] 51.7 N >60 13 CBC Auto 11/15/2014 [facility] White Blood 18.7 10^3/uL High 4.8-10.[address] [place] [address] [phone] Red Blood Count 4.01 10^6/uL N 4.0-5.4 [...] Blood Cells % 0 N Creatinine 11/07/2014 [facility] Creatinine 0.74 mg/dL N 0.51- 0.[address] [place] [address] [phone] Egfr Non- 79.8 N >60 Egfr 102.6 [...] <0.2 U N 18 Laboratory test 09/10/2014 [facility] TSH (Thyroid 1.37 ?IU/mL N 0.34-5.[address] Stim Horm) [place] [address] [phone] Free T4 (Free Thyroxine) 0.72 ng/mL N 0.61-1.12 Vitamin B12 330 pg/mL N 180-914 19 CBC Auto Diff 09/10/2014 [facility] White Blood 6.4 10^3/uL N 4.8-10.[address] [place] [address] [phone] Red Blood Count 4.02 10^6/uL N 4.0-5.4 [...] % 0.1 N Comp Metabolic Panel 09/10/2014 [facility] Sodium 134 mmol/L N 133-[address] [place] [address] [phone] Potassium 4.4 mmol/L N 3.5-5.0 Chloride 100 [...] 82.9 N >60 20 Laboratory test 09/10/2014 [facility] Mellissa (Anti-Nuclear Negative N Negative finding [address] AB) [place] [address] [phone] Isabel Screen Negative N Negative 21 Cytoplasmic 09/10/2014 [facility] C-Anca Negative N Negative Neutrophilic AB [address] [place] [address] [phone] P-Anca Negative N Negative 22 Laboratory test 09/10/2014 [facility] Erythrocyte Sed 6 mm/Hr N 0-[address] [place] [address] [phone] C Reactive Protein 1.07 mg/L N < 5.00 23 Laboratory test finding 07/04/2014 Mellissa (Anti-Nuclear AB) Negative N Negative Screen Histone Antibodies <0.5 U N 24 Urinalysis Profile 07/04/2014 Urine Color Yellow N Urine Appearance Cloudy N Urine Specific [place] 1.025 N 1.010-1.030 Urine pH 5.0 N [...] mm/Hr N 0-30 CBC Auto Diff 04/06/2014 [facility] White Blood 8.4 10^3/uL N 4.8-10.[address] [place] [address] [phone] Red Blood Count 4.07 10^6/uL N 4.0-5.4 [...] % 0 N Comp Metabolic Panel 04/06/2014 [facility] Sodium 137 mmol/L N 133-[address] [place] [address] [phone] Potassium 4.7 mmol/L N 3.5-5.0 Chloride 100 [...] 71.9 N >60 27 Laboratory test 04/06/2014 [facility] C Reactive 11.13 mg/L High < 5.00 [address] [place] [address] [phone] Erythrocyte Sed Rate 9 mm/Hr N 0-30 [...] NOTE) N 31 finding Basic Metabolic 06/29/2013 [facility] Sodium 135 mmol/L 133- [address] [place] [address] [phone] Potassium 4.1 mmol/L 3.7-5.6 Chloride 100 mmol/L Low 101-111 Co2 Carbon Dioxide 28 mmol/L 22-32 Anion Gap 7 mmol/L 2-11 Glucose 86 mg/dL 70-100 Blood Urea Nitrogen 24 mg/dL 6-24 Creatinine 0.72 mg/dL 0.51-0.95 BUN/Creatinine Ratio 33.3 High 8-20 Calcium 9.1 mg/dL 8.6-10.3 Egfr Non- 82.9 >60 Egfr 106.6 >60 32 Laboratory test finding 06/29/2013 [facility] Albumin 4.2 g/dL 3.2-5.[address] [place] [address] [phone] Total Bilirubin 0.70 mg/dL 0.2-1.0 Direct Bilirubin 0.20 mg/dL High 0.03-0.18 Alkaline Phosphatase 40 U/L 34-104 Alt 10 U/L 7-52 Ast 18 U/L 13-39 C Reactive Protein 1.89 mg/L 33 CBC With 06/29/2013 [facility] White Blood 6.4 10^3/uL 4.8- 10.8 Manual Diff [address] [place] [address] [phone] Red Blood Count 4.09 10^6/uL 4.0-5.4 Hemoglobin [...] RBC Morphology Normal Normal Laboratory test 06/29/2013 [facility] Erythrocyte Sed 4 mm/Hr 0-[address] [place] [address] [phone] TSH (Thyroid Stimulating Horm) 1.15 IU/mL 0.34-5.60 [...] 4 mm/Hr 0-30 Basic Metabolic Panel 12/30/2012 [facility] Sodium 134 mmol/L 133-145 [address] [place] [address] [phone] Potassium 4.2 mmol/L 3.5-5.0 Chloride 103 mmol/L 101-111 Co2 Carbon Dioxide 28.0 mmol/L 22-32 Anion Gap 3.0 mmol/L 2-11 Glucose 88 mg/dL 70-100 Blood Urea Nitrogen 17 mg/dL 6-24 Creatinine 0.90 mg/dL 0.50-1.40 BUN/Creatinine Ratio 18.9 8-20 Calcium 9.1 mg/dL 8.1-9.9 Egfr Non- 64.1 >60 Egfr 82.4 >60 35 Liver Function 12/30/2012 [facility] Total Protein 5.9 g/dL Low 6.2-8.[address] [place] [address] [phone] Albumin 3.6 g/dL 3.6-5.4 Globulin 2.3 g/dL 2-4 Albumin/Globulin Ratio 1.6 1-3 Total Bilirubin 0.7 mg/dL 0.4-1.5 Direct Bilirubin 0.1 mg/dL 0.1-0.5 Indirect Bilirubin 0.6 mg/dL 0.3-1.0 Alkaline Phosphatase 35 U/L 30-110 Alt 15 U/L 14-54 Ast 18 U/L 12-42 Laboratory test 12/30/2012 [facility] C Reactive 0.8 mg/dL High Less than finding [address] Protein 0.5 [place] [address] [phone] CBC With Manual 12/30/2012 [facility] White Blood 4.8 4.8- 10.[address] Count 10^3/[place] [address] [phone] Red Blood Count 4.05 10^6/uL 4.0-5.4 Hemoglobin [...] RBC Morphology Normal Normal Laboratory test 12/30/2012 [facility] Erythrocyte Sed 3 mm/Hr 0-[address] [place] [address] [phone] CBC With Manual 09/14/2012 [facility] White Blood 6.1 4.8- 10.[address] Count 10^3/[place] [address] [phone] Red Blood Count 4.14 10^6/uL 4.0-5.4 Hemoglobin [...] RBC Morphology Normal Normal Laboratory test 09/14/2012 [facility] C Reactive 0.5 mg/dL Less than finding [address] Protein 0.5 [place] [address] [phone] Erythrocyte Sed Rate 7 mm/Hr 0-30 Liver Function 09/14/2012 [facility] Total Protein 5.9 g/dL Low 6.2-8.[address] [place] [address] [phone] Albumin 3.8 g/dL 3.6-5.4 Globulin 2.1 g/dL 2-4 Albumin/Globulin Ratio 1.8 1-3 Total Bilirubin 0.7 mg/dL 0.4-1.5 Direct Bilirubin 0.2 mg/dL 0.1-0.5 Indirect Bilirubin 0.5 mg/dL 0.3-1.0 Alkaline Phosphatase 34 U/L 30-110 Alt 16 U/L 14-54 Ast 20 U/L 12-42 Basic Metabolic Panel 09/14/2012 [facility] Sodium 134 mmol/L 133-[address] [place] [address] [phone] Potassium 4.8 mmol/L 3.5-5.0 Chloride 100 mmol/L Low 101-111 Co2 Carbon Dioxide 26.0 mmol/L 22-32 Anion Gap 8.0 mmol/L 2-11 Glucose 106 mg/dL High 70-100 Blood Urea Nitrogen 23 mg/dL 6-24 Creatinine 0.80 mg/dL 0.50-1.40 BUN/Creatinine Ratio 28.8 High 8-20 Calcium 9.3 mg/dL 8.1-9.9 Egfr Non- 73.4 >60 Egfr 94.4 >60 36 CBC With 06/17/2012 [facility] White Blood 8.1 10^3/uL 4.8- 10.8 Manual Diff [address] [place] [address] [phone] Red Blood Count 3.94 10^6/uL Low 4.0-5.4 [...] RBC Morphology Normal Normal Laboratory test 06/17/2012 [facility] Erythrocyte Sed 10 mm/Hr 0-[address] [place] [address] [phone] Laboratory test 06/17/2012 [facility] C Reactive 1.5 mg/dL High Less finding [address] Protein than 0.5 [place] [address] [phone] Comp Metabolic 06/17/2012 [facility] Sodium 135 133-[address] mmol/[place] [address] [phone] Potassium 4.8 mmol/L 3.5-5.0 Chloride 102 mmol/L [...] 82.7 >60 37 Basic Metabolic Panel 02/17/2012 [facility] Sodium 135 mmol/L 133-145 [address] [place] [address] [phone] Potassium 4.2 mmol/L 3.5-5.0 Chloride 101 mmol/L 101-111 Co2 Carbon Dioxide 26.0 mmol/L 22-32 Anion Gap 8.0 mmol/L 2-11 Glucose 86 mg/dL 70-100 Blood Urea Nitrogen 17 mg/dL 6-24 Creatinine 0.70 mg/dL 0.50-1.40 BUN/Creatinine Ratio 24.3 High 8-20 Calcium 9.1 mg/dL 8.1-9.9 Egfr Non- 85.9 >60 Egfr 110.5 >60 38 Liver Function 02/17/2012 [facility] Total Protein 5.7 GM/DL Low 6.2-8.1 Panel [address] [place] [address] [phone] Albumin 3.6 GM/DL 3.6-5.4 Globulin 2.1 GM/DL 2-4 Albumin/Globulin Ratio 1.7 1-3 Total Bilirubin 0.4 mg/dL 0.1-1.0 39 Direct Bilirubin 0.1 mg/dL 0.1-0.5 Indirect Bilirubin 0.3 mg/dL 0.3-1.0 Alkaline Phosphatase 51 U/L 30-110 Alt 17 U/L 14-54 Ast 18 U/L 12-42 Laboratory test 02/17/2012 [facility] C Reactive 4.3 mg/dL High Less Than finding [address] Protein 0.5 [place] [address] [phone] CBC With Manual 02/17/2012 [facility] White Blood 8.7 4.8- 10.[address] Count 10^3/[place] [address] [phone] Red Blood Count 4.15 10^6/uL 4.0-5.4 Hemoglobin [...] RBC Morphology Normal Normal Laboratory test 02/17/2012 [facility] Erythrocyte Sed 9 MM/HR 0-[address] [place] [address] [phone] Culture Throat 02/17/2012 [facility] Throat Culture (SEE NOTE) [address] [place] [address] [phone] Basic Metabolic 12/23/2011 [facility] Sodium 140 mmol/L 135- [address] [place] [address] [phone] Potassium 4.8 mmol/L 3.5-5.0 Chloride 106 mmol/L 101-111 Co2 (Carbon Dioxide) 29.0 mmol/L 22-32 Anion Gap 5.0 mmol/L 2-11 41 Glucose 90 mg/dL 70-100 BUN 11 mg/dL 6-24 Creatinine 0.8 mg/dL 0.50-1.40 One Over Creatinine 1.25 BUN/Creatinine Ratio 13.8 8-20 Calcium 9.4 mg/dL 8.1-9.9 eGFR Non- 73.7 > 60 eGFR 94.7 > 60 42 Liver Function 12/23/2011 [facility] Total Protein 6.2 GM/DL 6.2-8.[address] [place] [address] [phone] Albumin 3.6 GM/DL 3.6-5.4 Globulin 2.6 GM/DL 2-4 Albumin/Globulin Ratio 1.4 1-3 Bilirubin Total 0.6 mg/dL 0.4-1.5 43 Bilirubin Direct 0.1 mg/dL 0.1-0.5 Indirect Bilirubin 0.5 mg/dL 0.3-1.0 44 Alkaline Phosphatase 78 U/L 30-110 Alt (SGPT) 27 U/L 14-54 Ast (Sgot) 31 U/L 12-42 Lipid Profile 12/23/2011 [facility] Triglyceride 250 mg/dL High 40-200 (Trig/Chol/HDL) [address] [place] [address] [phone] Cholesterol 197 mg/dL Less Than 200 45 High Density Lipoprotein 53 mg/dL 40-60 46 Cholesterol/HDL Ratio 3.72 AVERAGE 1-4.44 Low Density Lipoprotein 94 mg/dL Less Than 100 47 Laboratory test 12/23/2011 [facility] Erythrocyte Sed 15 MM/HR 0-[address] [place] [address] [phone] CBC With Manual 12/23/2011 [facility] White Blood 5.2 CUMM 4.8-10.[address] [place] [address] [phone] Red Cell Count 4.09 CUMM Low 4.2-5.4 [...] 0-2 RBC Morphology NORMAL Laboratory test 12/23/2011 [facility] C Reactive 8.0 mg/dL High Less Than finding [address] Protein 0.5 [place] [address] [phone] CBC Auto Diff 09/16/2011 [facility] White Blood 5.1 CUMM 4.8- 10.[address] [place] [address] [phone] Red Cell Count 4.00 CUMM Low 4.2-5.4 [...] Basophils 0.1 0-0.2 Basic Metabolic Panel 09/16/2011 [facility] Sodium 137 mmol/L 135-[address] [place] [address] [phone] Potassium 4.9 mmol/L 3.5-5.0 Chloride 103 mmol/L 101-111 Co2 (Carbon Dioxide) 29.0 mmol/L 22-32 Anion Gap 5.0 mmol/L 2-11 48 Glucose 121 mg/dL High 70-100 BUN 14 mg/dL 6-24 Creatinine 0.8 mg/dL 0.50-1.40 One Over Creatinine 1.25 BUN/Creatinine Ratio 17.5 8-20 Calcium 9.6 mg/dL 8.1-9.9 eGFR Non- 73.7 > 60 eGFR 94.7 > 60 49 Liver Function 09/16/2011 [facility] Total Protein 6.1 GM/DL Low 6.2-8.[address] [place] [address] [phone] Albumin 3.7 GM/DL 3.6-5.4 Globulin 2.4 GM/DL 2-4 Albumin/Globulin Ratio 1.5 1-3 Bilirubin Total 0.6 mg/dL 0.4-1.5 50 Bilirubin Direct 0.0 mg/dL Low 0.1-0.5 Indirect Bilirubin (SEE NOTE) mg/dL 0.3-1.0 51 Alkaline Phosphatase 44 U/L 30-110 Alt (SGPT) 17 U/L 14-54 Ast (Sgot) 25 U/L 12-42 Laboratory test 09/16/2011 [facility] C Reactive < 0.5 mg/dL Less Than finding [address] Protein 0.5 [place] [address] [phone] Erythrocyte Sed Rate 7 MM/HR 0-30 Laboratory test 02/27/2011 [facility] C Reactive < 0.5 Less Than [address] Protein mg/dL 0.5 [place] [address] [phone] CBC With Manual 02/27/2011 [facility] White Blood 8.1 CUMM 4.8-10.[address] [place] [address] [phone] Red Cell Count 4.30 CUMM 4.2-5.4 Hemoglobin [...] 5.5 RBC Morphology NORMAL Laboratory test 02/27/2011 [facility] Erythrocyte Sed 11 MM/HR 0-[address] [place] [address] [phone] Liver Function 02/27/2011 [facility] Total Protein 6.8 GM/DL 6.2-8.[address] [place] [address] [phone] Albumin 4.4 GM/DL 3.6-5.4 Globulin 2.4 GM/DL 2-4 Albumin/Globulin Ratio 1.8 1-3 Bilirubin Total 0.4 mg/dL 0.4-1.5 53 Bilirubin Direct 0.1 mg/dL 0.1-0.5 Indirect Bilirubin 0.3 mg/dL 0.3-1.0 54 Alkaline Phosphatase 43 U/L 30-110 Alt (SGPT) 16 U/L 14-54 Ast (Sgot) 21 U/L 12-42 Basic Metabolic Panel 02/27/2011 [facility] Sodium 137 mmol/L 135-[address] [place] [address] [phone] Potassium 4.2 mmol/L 3.5-5.0 Chloride 104 mmol/L 101-111 Co2 (Carbon Dioxide) 26.0 mmol/L 22-32 Anion Gap 7.0 mmol/L 2-11 55 Glucose 90 mg/dL 70-100 BUN 22 mg/dL 6-24 Creatinine 0.7 mg/dL 0.50-1.40 One Over Creatinine 1.42 BUN/Creatinine Ratio 31.4 High 8-20 Calcium 9.7 mg/dL 8.1-9.9 eGFR Non- 86.2 > 60 eGFR 110.9 > 60 56 Type And Screen 02/27/2011 [facility] Patient Blood B POSITIVE (Pre-Adm) [address] [place] [address] [phone] Antibody Screen NEGATIVE Specimen Discard Date 03/13/2011 [...] REFERENCE VALUE <1.0 (Negative) Test Performed by: [place] [address] Survey Rodman: Darrell Ruiz II, M.D., Ph.D. 3 REFERENCE VALUE <1.0 (Negative) Test Performed by: [place] [address] Survey [place]man: Darrell Ruiz II, M.D., Ph.D. 4 REFERENCE VALUE <1.0 (Negative) 5 REFERENCE VALUE <1.0 (Negative) Test Performed by: [place] [address] Survey Rodman: Darrell Ruiz II, M.D., Ph.D. 6 ADDITIONAL INFORMATION Laboratory developed test Test Performed by: [place] [address] Survey Rodman: Darrell Ruiz II, M.D., Ph.D. 7 Test Performed by: [place] [address] Survey Rodman: Darrell Ruiz II, M.D., Ph.D. 8 Test Performed by: [place] [address] Survey Rodman: Darrell Ruiz II, M.D., Ph.D. 9 Negative for cANCA and pANCA patterns by immunofluorescence. Test Performed by: [place] [address] Survey Rodman: Darrell Ruiz II, M.D., Ph.D. 10 Acute inflammation: >10.00 11 REFERENCE VALUE <20.0 (Negative) Test Performed by: [place] [address] [employer] [place]man: Darrell Ruiz II, M.D., Ph.D. 12 Test Performed by: [place] [address] Survey Rodman: Darrell Ruiz II, M.D., Ph.D. 13 Because [...] protein on serum electrophoresis. Test Performed by: [place] [address] Survey Rodman: Darrell Ruiz II, M.D., Ph.D. 16 Serologic response to B. burgdorferi infection is not detected, but cannot rule out early infection during which low or undetectable antibody levels to B. burgdorferi may be present. If clinically indicated, a new serum specimen should be submitted in 7-14 days. Test Performed by: [place] [address] Survey Rodman: Darrell Ruiz II, M.D., Ph.D. 17 REFERENCE VALUE <1.0 (Negative) 18 REFERENCE VALUE <1.0 (Negative) Test Performed by: [place] [address] Survey Rodman: Darrell Ruiz II, M.D., Ph.D. 19 Normal [...] test for the detection of antibodies to RELATIONSHIP MANAGEMENT LEAD, Sm, SS-A (Ro), and SS-B (La) nuclear antigens. 22 Negative for cANCA and pANCA patterns by immunofluorescence. Test Performed by: [place] [address] Survey Rodman: Darrell Ruiz II, M.D., Ph.D. 23 Acute inflammation: >10.00 24 REFERENCE VALUE <1.0 (Negative) Test Performed by: [place] [address] Survey Rodman: Darrell Ruiz II, M.D., Ph.D. 25 Because ethnic data [...] been shown to interfere with the Jendrassik-[place] method for measuring total bilirubin. Samples from patients who have taken Naproxen have shown spurious elevation in total bilirubin levels. 40 RUN DATE: 02/19/12 [facility] LAB LIVE PAGE 1 RUN TIME: [address] [place] [address] Specimen Inquiry Name: SOPHIE PERKINS : [address]: Tia Hutchinson MD Acct: [id number] Unit: [id number] AGE: 56 Location: [facility] Re02/17/12 SEX: F Status: REG REF SPEC: [id number] RYAN: 02/17/12-1230 [facility] DR: Tia Hutchinson MD REQ: [id number] RECD: 02/17/123447 STATUS: LEANN URRUTIA DR: Je GORDON,Luis _ SOURCE: THROAT SPDESC: ORDERED: Throat Culture Procedure Result Verified Site Throat Culture Final 02/19/12- 1133 ML Organism 1 NORMAL OPAL Quantity 3+ Throat cultures are clinically indicated to detect the presence of group A strep, arcanobacterium and yeast. END OF REPORT * ML=Testing performed at Main Lab DEPARTMENT OF PATHOLOGY, [address] [place] [id number] Reji Perales M.D. Director [facility] Permit #[id number] Anion gap measurement may be of [...] been shown to interfere with the Jendrassik-[place] method for measuring total bilirubin. Samples from [...] SURGERY DATE. Procedures Date Code Description Status 11/16/2014 25646 Nerve Conduction 03-04 Studies Completed Encounters Type Date Location Provider Dx Diagnosis Office Visit 05/16/2015 [facility]2.43 Otitis externa in 11:00a 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 729.2 Neuralgia Neuritis & Radiculitis Unspec Office Visit 06/29/2014 10:30a Rheumatology Ever Quintana, 995.3 Allergy Unspec [facility] 782.1 Rash & Other Nonspec Skin Eruption 720.0 Spondylitis Ankylosing 714.0 Rheumatoid Arthritis V58.69 Medications Nursing Home (Current) Use Encounter Office Visit 04/27/2014 10:00a Rheumatology Alyxofia 720.0 Spondylitis [facility] Ankylosing 714.0 Rheumatoid Arthritis V58.69 Medications Nursing Home (Current) Use Encounter Office Visit 09/29/2013 3:30p Rheumatology Alyxofia 720.0 Spondylitis [facility] Ankylosing 714.0 Rheumatoid Arthritis V58.69 Medications Sewer Cleaner (Current) Use Encounter Office Visit 07/05/2013 2:30p Rheumatology Alyxofia 720.0 Spondylitis [facility] Ankylosing 714.0 Rheumatoid Arthritis V58.69 Medications Nursing Home (Current) Use Encounter Office Visit 04/07/2013 3:40p Rheumatology Zsofia 720.0 Spondylitis [facility] Ankylosing 714.0 Rheumatoid Arthritis V58.69 Medications Sewer Cleaner (Current) Use Encounter Office Visit 12/30/2012 3:40p Rheumatology Zsofia 720.0 Spondylitis [facility] Ankylosing 714.0 Rheumatoid Arthritis V58.69 Medications Nursing Home (Current) Use Encounter Office Visit 09/16/2012 2:40p Rheumatology Zsofia 720.0 Spondylitis [facility] Ankylosing V58.69 Medications Nursing Home (Current) Use Encounter Office Visit 04/01/2012 3:00p Rheumatology Luis Wooten 720.0 Spondylitis Services [facility] [place] Ankylosing V58.69 Medications Sewer Cleaner (Current) Use Encounter 786.2 Cough Office Visit 01/08/2012 1:40p Rheumatology Services Luis Wooten M.D. 786.2 Cough Of [facility] 720.0 Spondylitis Ankylosing V58.69 Medications Nursing Home (Current) Use Encounter 782.1 Rash & Other Nonspec Skin Eruption Office Visit 12/25/2011 3:00p Rheumatology Luis Wooten 720.0 [facility] Chi.D. Ankylosing V58.69 Medications Nursing Home (Current) Use Encounter 462 Pharyngitis Acute Office Visit 09/18/2011 3:00p Rheumatology Luis Endo, 720.0 [facility] Sorter M.D. Ankylosing V58.69 Medications Sewer Cleaner (Current) Use Encounter Office Visit 06/12/2011 2:20p Rheumatology Luis Endo, 720.0 [facility] M.D[facility] Ankylosing V58.69 Medications Nursing Home (Current) Use Encounter Office Visit 01/23/2011 1:00p Rheumatology Luis Endo, 720.0 [facility] M.[facility] Ankylosing V58.69 Medications Sewer Cleaner (Current) Use Encounter Office Visit 11/14/2010 2:40p Rheumatology Luis Endo, 720.0 [facility] M.D[facility] Ankylosing V58.69 Medications Sewer Cleaner (Current) Use Encounter 788.64 Urinary Hesitancy Office Visit 09/19/2010 1:00p Rheumatology Luis Endo, 720.0 [facility] M.D[facility] Ankylosing V58.69 Medications Nursing Home (Current) Use Encounter Office Visit 08/06/2010 4:00p Rheumatology Luis Endo, 720.0 [facility] M.[facility] Ankylosing V58.69 Medications Nursing Home (Current) Use Encounter Office Visit 07/23/2010 3:20p Rheumatology Luis Endo, 720.0 [facility] M.D[facility] Ankylosing V58.69 Medications Nursing Home (Current) Use Encounter Plan of Treatment Future Appointment(s):06/01/2018 11:30 am - Martina Bautista MD at [facility]05/27/2018 10:00 am - Martina Bautista MD at [facility]05/20/2018 10:15 am - KEVIN Gee at [facility]05/11/2018 - Martina Bautista, MDR92.8 Other abnormal and inconclusive findings on diagnostic imagiFollow up:for H&P and post op
[2018-06-03] MEDS ORDERED: Cephalexin CAP* 500 MG PO ONE (20:29)
[2018-06-03 21:04] VITALS: BP 125/98
== END 2018-06-03 21:01 | disposition home or self-care (01) ==
LOC: ED 17:55
DX: R07.89 Other chest pain (principal); T81.31XA Disruption of external operation (surgical) wound, not elsewhere classified, initial encounter; I10 Essential (primary) hypertension; F41.9 Anxiety disorder, unspecified; F32.9 Major depressive disorder, single episode, unspecified; Z88.1 Allergy status to other antibiotic agents; Z88.0 Allergy status to penicillin; Z88.8 Allergy status to other drugs, medicaments and biological substances; Z91.048 Other nonmedicinal substance allergy status; Z87.891 Personal history of nicotine dependence
CPT/HCPCS: 36415; 70450; 71260; 72125; 74177; 80053; 83605; 84484; 85025; 93005; 99283; Q9967

== ENCOUNTER 2018-06-10 07:45 | Day surgery (SDC) | payer BC, OTHER ==
[~2018-06-10 07:45] MED LIST changes: -Famotidine IV* 10 MG/ML 2 ML (20 mg) IV ONE
[2018-06-10] MEDS ORDERED: Lidocaine 2.5%/Prilocain 2.5%* 5 GM TUBE ONE (08:18)
[2018-06-10] MEDS ORDERED: HYDROcodone/ACETAMIN 5-325 MG* 1 TAB ONE ×2 (08:43→12:32)
[2018-06-10] MEDS ORDERED: fentaNYL* 50 MCG/ML 2 ML VIAL (100 MCG VIAL) ONE (09:37)
[2018-06-10] MEDS ORDERED: Midazolam* 1 MG/ML 5 ML VIAL (5 MG) ONE (09:37)
[2018-06-10] MEDS ORDERED: Clindamycin 900 MG/D5W BAG(*) 900 MG/50 ML BAG IVPB ONE (10:02)
[2018-06-10] MEDS ORDERED: Methylene Blue 0.5 %* 50 MG/10 ML AMP IV ONE (10:08)
[2018-06-10] MEDS ORDERED: Bupivacaine 0.25% W/EPI* 10 ML SDV ONE (10:08)
[2018-06-10] MEDS ORDERED: Bupivacaine 0.5% W/EPI SDV* 30 ML VIAL ONE (10:09)
[2018-06-10] MEDS ORDERED: Lidocaine 1% INJ* 10 MG/ML 30 ML SDV ONE (10:09)
[2018-06-10] MEDS ORDERED: Bupivacaine 0.5%* 50 ML VIAL ONE (10:10)
[2018-06-10] MEDS ORDERED: Propofol* 10 MG/ML 20 ML BTL ONE (10:52)
[2018-06-10] MEDS ORDERED: Naloxone* 0.4 MG/ML 1 ML VIAL IV PRN (11:34)
[2018-06-10] MEDS ORDERED: Ketorolac INJ* 30 MG/ML 1 ML VIAL ONE (11:34)
[2018-06-10] MEDS ORDERED: Acetaminophen TAB* 325 MG ONE (11:47)
--- NOTE | 2018-06-10 11:48 | BRIEFOPN ---
Brief Operative Note - Surgery Procedures: Procedures COLONOSCOPY (11/07/14) D & C NEC (01/06/08) ENDOMETRIAL ABLATION (01/06/08) HEMORRHOIDECTOMY (02/10/13) INJECTION INTO JOINT (05/23/13) SPINAL CANAL INJECT NEC (11/30/13) 06/10/18 Op Note Pre-op dx: left breast cancer Post-op dx: same Procedure: left axillary sentinel lymph node biopsy Surgeon: Michele Asst: THANH Juan Anesth: local-MAC EBL: 5 cc complications: none SCDs on during surgery Abx: given pre-op Pt. tolerated procedure well and was transferred to in a stable condition. [facility]
[2018-06-10] MEDS ORDERED: Hydrocodone/Acetamin 10/325 1 TAB PO PRN (11:54)
[2018-06-10 13:11] VITALS: BP 118/82
--- NOTE | 2018-06-10 15:59 | OP ---
CC: Dr. Tia Hutchinson; [facility] * DATE OF OPERATION: 06/10/18 - [facility] DATE OF : 51 SURGEON: Dr. Bautista. LUNCHRO[employer] SUPERVISOR: KEVIN Mullins Student. PRE-OP DIAGNOSIS: Left breast cancer. POST-OP DIAGNOSIS: Left breast cancer. OPERATIVE PROCEDURE: Left sentinel lymph node biopsy. INDICATIONS: Ms. Shelley is a 62-year-old woman recently diagnosed with breast cancer which was done by lumpectomy for atypical cells. Since she had previous unsuspected breast cancer, plans were made for secondary sentinel lymph node biopsy. DESCRIPTION OF PROCEDURE: On the morning of surgery, she underwent sentinel lymph node localization without difficulty. She was then brought to the operating room, placed on the OR table in the supine position, and given IV sedation. The left breast and axilla were prepped and draped in the usual sterile fashion. The incision from the previous breast biopsy was opened on its medial aspect. So this wound was covered with Tegaderm after prepping and draping. Then, the navigator was used to identify the approximate location of the sentinel node before making the incision. The local was instilled into this area of the skin and then an incision was made. Subcutaneous tissue was divided with electrocautery down to the level of the axillary fat pad, and again using the navigator, a search was made for the sentinel node. Node was almost immediately apparent and had in situ counts of around 1300. This node was dissected free from surrounding tissue using clips to control small lymphatic and blood vessels that approached to the gland and sharp and blunt dissection. Once the gland was out, it had the counts checked again and ex- vivo counts were around 1900. The axillary bed counts were 35. This confirmed that the 1 node was indeed the sentinel node and closure was accomplished after irrigating and instilling some additional local anesthetic. 3-0 Vicryl was used to close the subcutaneous tissue and the skin was closed with 4-0 Prolene in a subcuticular fashion. Steri-Strips and a dry sterile dressing were applied to the axillary incision and 0.5 inch plain packing strip was placed on the open wound of the breast incision and this was covered with gauze and Tegaderm as well. All sponge and instrument counts were correct. The patient tolerated the procedure well and was transferred to recovery in a stable condition. [id number]/[facility] #: [id number] JUANITA
== END 2018-06-10 13:15 | disposition home or self-care (01) ==
LOC: OR 07:45
PROVIDERS: ATTEND Surgery
DX: C50.912 Malignant neoplasm of unspecified site of left female breast (principal); I10 Essential (primary) hypertension; J45.909 Unspecified asthma, uncomplicated; Z87.891 Personal history of nicotine dependence; Z88.0 Allergy status to penicillin; Z88.8 Allergy status to other drugs, medicaments and biological substances; M45.9 Ankylosing spondylitis of unspecified sites in spine
CPT/HCPCS: 78195; 88307; 88342; A9270-GY; A9541; J1885; J2250; J2704; J3010